=== PATIENT | male | born 1945 | race Caucasian/White ===

== ENCOUNTER 2017-08-17 16:59 | Emergency (ER) | payer MEDICARE, MEDICAID, SELFPAY ==
[2017-08-17 17:00] VITALS: BP 139/70; PULSE 82; RESP 16; TEMP 36.6; O2SAT 97; BMI 33.6
[2017-08-17] MEDS: 0.9% Normal Saline 1,000 ML 1000 ML IV (17:27)
[2017-08-17] MEDS: Ondansetron 4 MG/2 ML Vial IV (17:32)
[2017-08-17 18:16] LABS: Absolute Lymphocyte Count 0.75 X10^3/ul (0.83-4.51); Absolute Neutrophil Count 1.9 X10^3/uL (2.0-7.7); Basophil# 0.03 X10^3/uL; Basophil% 0.7 % (0-1); Eosinophil# 0.03 X10^3/uL; Eosinophils% 0.7 % (0-5); Hematocrit 44.2 % (40-54); Hemoglobin 15.7 g/dl (13.0-16.5); Lymphocyte # 0.75 X10^3/ul (4.0); Mean Corp Hgb Conc 35.5 g/gl (32-36); Mean Corpuscular Hgb 31.5 pg (27.0-32.0); Mean Corpuscular Volume 88.6 fL (80-94); Mean Platelet Vol. 9.2 fl (6.2-12.0); Monocyte# 1.66 X10^3/uL; Monocyte% 37.7 % (0-10); Neutrophil # 1.92 X10^3/uL (2.7-7.7); Neutrophil % 43.7 % (47-70); Platelet Count 317 K/mm3 (150-450); RBC Distribution Width CV 15.4 % (11.6-14.6); RBC Distribution Width SD 48.7 fl (35.1-43.9); Red Blood Count 4.99 M/mm3 (4.6-6.2); White Blood Count 4.4 K/mm3 (4.4-11.0)
[2017-08-17 18:20] LABS: Differential Indicated SCAN CRITERIA MET; POSITIVE COUNT NO; POSITIVE DIFFERENTIAL YES; POSITIVE MORPHOLOGY YES
[2017-08-17 18:23] LABS: AST(SGOT) 19 U/L (15-37); Alanine Aminotransfer ALT/SGPT 19 U/L (16-61); Albumin, Serum 3.1 g/dL (3.2-5.0); Alkaline Phosphatase 71 U/L (45-117); Anion Gap 10 (5-15); BUN 28 mg/dL (7-18); BUN/Creat Ratio 22.8 RATIO (10-20); Bilirubin, Direct 0.13 mg/dL (0.00-0.30); Chloride 92 mmol/L (98-107); Creatinine, Serum 1.23 mg/dL (0.70-1.30); EST Glomerular Filtration Rate 62 mL/min (>60); Est Glom Filt Rate - Afr Amer 75 mL/min (>60); Estimated Creatinine Clearance 54.07 ml/min; Globulin 4.1 g/dL (2.2-4.2); Glucose 120 mg/dL (70-110); Potassium 3.2 mmol/L (3.5-5.1); Protein, Total 7.2 g/dL (6.4-8.2); Sodium Level 131 mmol/L (136-145)
[2017-08-17] MEDS: 0.9% Normal Saline 1,000 ML 150 ML IV ×2 (18:32→19:07)
[2017-08-17 18:34] LABS: Differential Comment SCANNED
--- NOTE | 2017-08-17 18:57 | ED.VISSUMM ---
- ER Visit Summary Date of Service: 08/17/17 Chief Complaint: Nausea and vomiting History of Present Illness: The patient is a 72 M currently receiving chemotherapy for prostate and colon cancer. Patient states his last chemo treatment was 1 week ago today. 2 days later he developed nausea and vomiting. He has been trying to push fluids. States he has been urinating normally. He denies fever but has noted some chills. He denies abdominal pain. Physical Examination: Vital signs are unremarkable. Patient is lying in bed no acute distress. Head and neck examination was mildly dry mucous membranes. Heart is regular rate and rhythm. Lung sounds are clear. Abdomen is soft nontender. Hypoactive bowel sounds are noted throughout. Test Results: CBC is unremarkable. Chemistry studies reveal sodium of 131 and a chloride of 92. Potassium is 3.2. BUN is 28. On review of prior records his sodium was 141 on July 27. Liver function tests are normal. Emergency Department Course and Treatment: Patient is given Zofran along with IV fluids. On repeat evaluation patient reports feeling improved. He is able to tolerate p.o. Patient received a total of 2 L of IV fluid and a repeat BMP was performed. Repeat sodium is 133 and potassium is 2.9. Patient did receive 40 mEq of potassium chloride orally here. I will speak with the patient's oncologist. Plan will be to discharge home with potassium and Zofran. I am hoping that he can be seen in the next 2 days for repeat labs. Patient is comfortable with this plan. Treatment Plan: [] Disposition: Discharge Impression: 1. Nausea and vomiting, improved 2. Hyponatremia 3. Hypokalemia 4. Chemotherapy secondary to prostate colon cancer This note was generated with [employer] dictation software. It may contain incorrect words, spelling, and punctuation that were not noted in review of the chart prior to signing ED Disposition - Plan for ED Patient: Disposition: Home or Assisted Living Chief Complaint: Nausea/Vomiting Instructions: ED Hyponatremia, ED Potassium Deficiency, ED Nausea Vomiting Prescriptions: Ondansetron [Zofran Odt] 4 mg PO Q6H PRN PRN #20 tablet PRN Reason: Nausea Potassium Chloride [K-Dur] 40 meq PO DAILY #10 tablet Referrals: Meghan Sanchez DO [Primary Care Provider] - Margot Alonso MD [STAFF PHYSICIAN] - 1 Day
[2017-08-17 19:09] VITALS: BP 134/72; PULSE 72; RESP 20; O2SAT 97
[2017-08-17 19:55] LABS: Bacteria 0 SEEN /hpf (None Seen); Squamous Epithelial Cells - UA 0 SEEN /hpf (0-5)
[2017-08-17 20:03] LABS: Color, Urine Yellow (Yellow); Glucose, Dipstick 100 mg/dl (Normal); Ketone-Dipstick Negative (Negative); Leukocyte Esterase-Dipstick Negative /ul (Negative); Nitrite-Dipstick Negative (Negative); Occult Blood-Urine 150 /ul (Negative); Protein-Dipstick 30 mg/dl (Negative); Urine Bilirubin Dipstick Negative (Negative); Urine Clarity Clear (Clear); Urine Urobilinogen Normal (Normal)
[2017-08-17 20:20] LABS: Fine Granular Cast- Urine 0-5 SEEN /lpf (0-5)
[2017-08-17 20:21] LABS: Hyaline Cast 0-5 SEEN /lpf (0-5); Mucous, Urine 1+ /hpf (<or=2+)
[2017-08-17 20:27] LABS: Red Blood Cells-Urine 5-10 SEEN /hpf (0-5); White Blood Cells 0-5 SEEN /hpf (0-5)
[2017-08-17 20:52] LABS: Anion Gap 8 (5-15); BUN 24 mg/dL (7-18); Calcium,Total 7.9 mg/dL (8.5-10.1); Chloride 95 mmol/L (98-107); EST Glomerular Filtration Rate 79 mL/min (>60); Est Glom Filt Rate - Afr Amer 95 mL/min (>60); Glucose 106 mg/dL (70-110); Potassium 2.9 mmol/L (3.5-5.1); Sodium Level 133 mmol/L (136-145)
[2017-08-17 21:42] VITALS: BP 117/73; PULSE 85; RESP 18; O2SAT 97
--- NOTE | 2017-08-17 21:48 | ED.DEP ---
ED Disposition - Plan for ED Patient: Disposition: Home or Assisted Living Chief Complaint: Nausea/Vomiting Instructions: ED Nausea Vomiting, ED Hyponatremia, ED Potassium Deficiency Prescriptions: Ondansetron [Zofran Odt] 4 mg PO Q6H PRN PRN #20 tablet PRN Reason: Nausea Potassium Chloride [K-Dur] 40 meq PO DAILY #10 tablet Referrals: Meghan Sanchez DO [Primary Care Provider] - Margot Alonso MD [STAFF PHYSICIAN] - 1 Day
[2017-08-17] MEDS: Ondansetron ODT 4 MG Tablet PO (22:01)
== END 2017-08-17 22:13 | disposition home or self-care (01) ==
PROVIDERS: Emergency Provider Emergency Medicine; Family Provider Internal Medicine; PCP Internal Medicine
DX: R11.2 Nausea with vomiting, unspecified (principal); E87.1 Hypo-osmolality and hyponatremia; E87.6 Hypokalemia; C61 Malignant neoplasm of prostate; C18.9 Malignant neoplasm of colon, unspecified; I25.10 Atherosclerotic heart disease of native coronary artery without angina pectoris; I10 Essential (primary) hypertension; E78.00 Pure hypercholesterolemia, unspecified; K21.9 Gastro-esophageal reflux disease without esophagitis; Z79.51 Long term (current) use of inhaled steroids; Z79.82 Long term (current) use of aspirin; Z79.02 Long term (current) use of antithrombotics/antiplatelets; Z79.899 Other long term (current) drug therapy
CPT/HCPCS: 80048; 80076; 81001; 85025; 96361; 96374; 99284; J7030; J7040; A4216; J2405

== ENCOUNTER → 2018-01-26 10:53 | Outpatient (CLI) | payer MEDICARE, MEDICAID, SELFPAY ==
[2018-01-27 08:07] LABS: Carcinoembryonic Antigen 2.8 ng/mL (0.0-4.7)
== END ==
PROVIDERS: Family Provider Internal Medicine; PCP Internal Medicine; Visit Provider Internal Medicine Gastroenterology
DX: Z85.038 Personal history of other malignant neoplasm of large intestine (principal)
CPT/HCPCS: 36415; 82378

== ENCOUNTER → 2018-02-11 17:35 | Outpatient (CLI) | payer MEDICARE, MEDICAID, SELFPAY ==
--- NOTE | 2018-02-11 17:39 | CT_ITS ---
STUDY: CT ABDOMEN AND PELVIS WITH CONTRAST REASON FOR EXAM: Male, 72 years old. Colon cancer follow-up. History of partial colectomy and chemotherapy. RADIATION DOSAGE (If Supplied By Facility): CTDIvol = ( 18.35 ) mGy, DLP = ( 1266.54 ) mGycm TECHNIQUE: Transaxial images were obtained from the dome of the diaphragm to the symphysis pubis with oral contrast and post I.V. administration of 100 ml of Isovue 300 contrast. Sagittal and coronal images were reconstructed. Individualized dose optimization techniques were used for this CT. COMPARISON: CT abdomen and pelvis June 17, 2017. FINDINGS: 5 mm calcified granuloma seen in the posterolateral periphery of the left lung base. 1-2 mm nodules in the anterolateral periphery of the right middle lobe on series 2 image 5. Heart size is normal. There are atherosclerotic calcifications of the coronary arteries. Normal liver. The patent portal vein diameter is 1.2 cm. Normal gallbladder and extrahepatic biliary system. The diameter of the common bile duct is 6.5 mm. There are multiple benign calcified granulomata of the spleen. Normal pancreas. Normal bilateral adrenal glands. Normal right kidney. Normal left kidney. No hydronephrosis. There is a stable small hiatal hernia. Normal small intestine. There are multiple colonic diverticula consistent with diverticulosis. The appendix is visualized and appears normal. There is stable atherosclerotic calcification of the abdominal aorta and proximal iliac arteries, without a demonstrated aneurysm. Normal inferior vena cava. Normal retroperitoneum. Normal urinary bladder. The prostate gland is 4.85 x 4.7 x 4.45 cm (R 64 cc). There are prostatic calcifications. There is a stable small umbilical hernia containing fat. There is a stable right-sided inguinal hernia containing adipose tissue. There is a stable left-sided inguinal hernia containing adipose tissue. There are stable multilevel degenerative changes of the visualized spine, as well as stable osteoarthritic degenerative changes of the sacroiliac joints and hips. CT/Abdomen/Pelvis WITH Contrast IMPRESSION: 1. Colonic diverticulosis without acute diverticulitis. No sign of bowel mass or adenopathy. No sign of bowel obstruction. The appendix is normal. 2. Stable atherosclerotic vascular calcifications. 3. Stable fat-containing umbilical and bilateral inguinal hernias. 4. The prostate gland is enlarged with coarse central calcifications. 5. No hydronephrosis. 6. Stable findings of old calcified granulomatous disease. 7. Stable degenerative changes of the spine and pelvis. Electronically Signed: Donald Oliveros MD at 18:33 EDT , Service support ,
== END ==
PROVIDERS: Family Provider Internal Medicine; PCP Internal Medicine; Visit Provider Internal Medicine Gastroenterology
DX: Z85.038 Personal history of other malignant neoplasm of large intestine (principal)
CPT/HCPCS: 74177

== ENCOUNTER → 2018-03-17 15:25 | Outpatient (CLI) | payer MEDICARE, MEDICAID, SELFPAY ==
[2018-03-17 15:34] LABS: Absolute Lymphocyte Count 1.44 X10^3/ul (0.83-4.51); Absolute Neutrophil Count 4.2 X10^3/uL (2.0-7.7); Basophil# 0.04 X10^3/uL; Basophil% 0.6 % (0-1); Eosinophil# 0.18 X10^3/uL; Eosinophils% 2.8 % (0-5); Hematocrit 45.8 % (40-54); Hemoglobin 15.6 g/dl (13.0-16.5); Lymphocyte # 1.44 X10^3/ul (4.0); Lymphocyte % 22.1 % (19-41); Mean Corp Hgb Conc 34.1 g/gl (32-36); Mean Corpuscular Hgb 31.1 pg (27.0-32.0); Mean Corpuscular Volume 91.2 fL (80-94); Mean Platelet Vol. 9.4 fl (6.2-12.0); Monocyte# 0.63 X10^3/uL; Monocyte% 9.7 % (0-10); Neutrophil # 4.21 X10^3/uL (2.7-7.7); Neutrophil % 64.5 % (47-70); Platelet Count 277 K/mm3 (150-450); RBC Distribution Width CV 12.9 % (11.6-14.6); RBC Distribution Width SD 42.5 fl (35.1-43.9); Red Blood Count 5.02 M/mm3 (4.6-6.2); White Blood Count 6.5 K/mm3 (4.4-11.0)
[2018-03-17 15:40] LABS: Erythrocyte Sedimentation Rate 3 mm/hr (0-20)
[2018-03-17 15:43] LABS: POSITIVE COUNT NO; POSITIVE DIFFERENTIAL NO; POSITIVE MORPHOLOGY NO
[2018-03-17 16:02] LABS: ALB/GLOB Ratio 1.3 RATIO (0.9-2.4); AST(SGOT) 31 U/L (15-37); Alanine Aminotransfer ALT/SGPT 29 U/L (16-61); Albumin, Serum 4.1 g/dL (3.2-5.0); Alkaline Phosphatase 74 U/L (45-117); Anion Gap 8 (5-15); BUN 9 mg/dL (7-18); BUN/Creat Ratio 8.7 RATIO (10-20); CRP, High Sensitivity Cardiac 1.27 mg/L; Calcium,Total 9.3 mg/dL (8.5-10.1); Chloride 101 mmol/L (98-107); Creatinine, Serum 1.03 mg/dL (0.70-1.30); EST Glomerular Filtration Rate 76 mL/min (>60); Est Glom Filt Rate - Afr Amer 92 mL/min (>60); Globulin 3.2 g/dL (2.2-4.2); Glucose 85 mg/dL (74-106); Protein, Total 7.3 g/dL (6.4-8.2); Sodium Level 139 mmol/L (136-145)
== END ==
PROVIDERS: Family Provider Internal Medicine; PCP Internal Medicine; Visit Provider Nurse Practitioner Gerontology
DX: R50.9 Fever, unspecified (principal); I25.10 Atherosclerotic heart disease of native coronary artery without angina pectoris
CPT/HCPCS: 80053; 85025; 85652; 86141

== ENCOUNTER → 2018-09-21 15:35 | Outpatient (CLI) | payer MEDICARE, MEDICAID, SELFPAY ==
[2018-06-28 10:54] VITALS: BMI 34.5
--- NOTE | 2018-09-21 15:41 | VDUE_ITS ---
Reason For Study: PAIN Right Proximal Right jugular vein is spontaneous, widely patent, phasic, with no intraluminal echogenicity noted. Right subclavian vein is spontaneous, widely patent, phasic, with no intraluminal echogenicity noted. Right Lower Arm Right radial vein is compressible. Right ulnar vein is compressible. Right Arm Right axillary vein is spontaneous, patent, phasic, competent, compressible and demonstrates augmentation. Right brachial vein is compressible. Right cephalic vein is compressible. Right basilic vein is compressible. Interpretation Summary Deep veins of the right upper extremity are patent and compressible segmentally. There is no evidence of deep vein thrombosis. The superficial veins of the right upper extremity, the basilic and cephalic veins, are patent and compressible. There is no evidence of right upper extremity superficial thrombophlebitis involving the veins imaged. Ordering Physician: Meghan Sanchez Referring Physician: Meghan Sanchez Performed By: Gabriela Mcfadden, THADDEUS, RVT ?
== END ==
PROVIDERS: Family Provider Internal Medicine; PCP Internal Medicine; Referring Provider Internal Medicine; Visit Provider Internal Medicine
DX: M79.601 Pain in right arm (principal)
CPT/HCPCS: 93971

== ENCOUNTER → 2018-12-27 | Outpatient (CLI) | payer MEDICARE, MEDICAID, SELFPAY ==
[2018-09-28 13:41] VITALS: BMI 34.9
[2018-12-27 16:14] LABS: PSA,Total- Diagnostic 7.07 ng/mL (0.0-4.0)
== END | disposition home or self-care (01) ==
LOC: LAB 14:26
PROVIDERS: Family Provider Internal Medicine; PCP Internal Medicine; Referring Provider Radiology Radiation Oncology; Visit Provider Radiology Radiation Oncology
DX: C61 Malignant neoplasm of prostate (principal)
CPT/HCPCS: 36415; 84153

== ENCOUNTER → 2019-07-13 13:10 | Outpatient (CLI) | payer MEDICARE, MEDICAID, SELFPAY ==
[2019-06-29 13:28] VITALS: BMI 34.7
[2019-07-13 14:18] LABS: PSA,Total- Diagnostic 7.94 ng/mL (0.0-4.0)
== END ==
PROVIDERS: Family Provider Internal Medicine; PCP Internal Medicine; Referring Provider Radiology Radiation Oncology; Visit Provider Radiology Radiation Oncology
DX: Z85.46 Personal history of malignant neoplasm of prostate (principal)
CPT/HCPCS: 36415; 84153

== ENCOUNTER 2019-08-11 09:02 | Day surgery (SDC) | payer MEDICARE, MEDICAID, SELFPAY ==
[2019-07-28 12:28] VITALS: BMI 34.7
--- NOTE | 2019-07-28 12:45 | HP_ITS ---
Intake Vital Signs 07/28/19 BMI 34.7 07/28/19 Height 5 ft 9.5 in 07/28/19 Weight: 238 lb 07/28/19 BMI 34.6 07/28/19 BP 115/67 07/28/19 Blood Pressure Location Lt brachial 07/28/19 Position Sitting 07/28/19 Respiration 16 07/28/19 Pulse 52 L 07/28/19 Pulse Source Monitor 07/28/19 Temp 98.2 F 07/28/19 Temp Source Oral 07/28/19 Pulse Oximetry (%) 96 07/28/19 Oxygen Delivery Method room air Intake Visit Reasons: Colonoscopy CONSULT Chief Complaint: Colon cancer follow-up Allergies DUST Adverse Reaction (Mild, Uncoded 06/29/19 13:25) Other Medications Albuterol Sulfate [Proventil Hfa] 6.7 gm IH PRN PRN 10/21/15 [History Confirmed 07/28/19] Aspirin 325 mg PO DAILY@0800 10/21/15 [History Confirmed 07/28/19] Ezetimibe [Zetia] 10 mg PO DAILY 10/21/15 [History Confirmed 07/28/19] Fluticasone 0.05% [Flonase Nasal [place]] 2 spray NASAL DAILY 10/21/15 [History Confirmed 07/28/19] Lansoprazole [Prevacid] 30 mg PO DAILY 10/21/15 [History Confirmed 07/28/19] Montelukast [Singulair] 10 mg PO DAILY 10/21/15 [History Confirmed 07/28/19] Tiotropium [place] [Spiriva Respimat] 2.5 mg IH DAILY 07/12/16 [History Confirmed 07/28/19] Ondansetron [Zofran Odt] 4 mg PO Q6H PRN PRN #20 tab 08/17/17 [Rx Confirmed 07/28/19] carvedilol 3.125 mg tablet 3.125 mg PO BID #180 tab 04/14/18 [Rx Confirmed 07/28/19] clopidogrel 75 mg tablet 75 mg PO DAILY #90 tab 04/14/18 [Rx Confirmed 07/28/19] hydrochlorothiazide 25 mg tablet 25 mg PO DAILY #90 tab 04/14/18 [Rx Confirmed 07/28/19] lisinopril 20 mg tablet 20 mg PO DAILY #90 tab 09/27/18 [Rx Confirmed 07/28/19] simvastatin 20 mg tablet 20 mg PO QHS #90 tab 10/17/18 [Rx Confirmed 07/28/19] nitroglycerin 0.4 mg sublingual tablet 0.4 mg SUBLINGUAL Q5M PRN #25 tab 05/29/19 [Rx Confirmed 07/28/19] Acetaminophen [Tylenol] 650 mg PO TID 06/29/19 [History Confirmed 07/28/19] [facility] Medical History Presence of stent in coronary artery (Chronic ~09/23/09) Atherosclerotic heart disease of [place] coronary artery without angina pectoris (Chronic) 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 (Acute) Sinus bradycardia (Chronic) COPD (chronic obstructive pulmonary disease) (Chronic) Palpitations (Chronic) Atherosclerosis of renal artery (Chronic) PAC (premature atrial contraction) (Chronic) Essential hypertension (Chronic) Colon cancer (Chronic) Regional lymph node metastasis present (Chronic) Prostate cancer (Chronic) GERD (gastroesophageal reflux disease) (Chronic) Chest pain (Acute) CVD (cerebrovascular disease) (Chronic) Cataract (Chronic) Osteoarthritis (Chronic) Pure hypercholesterolemia (Chronic) Conjunctivitis (Resolved) Dehydration (Resolved) Educational circumstance (Resolved) Hypokalemia (Resolved) Surgical History History of squamous cell carcinoma excision (Acute) Presence of coronary angioplasty implant and graft (Chronic ~09/23/09) H/O colectomy (Resolved) Family History Father Heart murmur Mother Heart disease Hypertension Brother Colon cancer Brother Colon cancer Social History (Updated 07/28/19 @ 12:45 by Xander Woo MD) Smoking Status: Never smoker alcohol intake: never substance use type: does not use caffeine: Yes Type: coffee Number of servings: 5 what type of physical activity do you participate in: aerobics, other frequency: daily duration: 15-30 minutes/day seatbelt use: always do you feel safe at home: Yes HPI HPI HPI: WERNER STEIN, is a 74 M who presents to the office today for HPI HPI Surgical H&P: Yes HPI: WERNER STEIN, is a 74 M who presents to the office today for colonoscopy. Patient had a history of colectomy In July 2016. He has not underwent any colonoscopy since the procedure. Patient has CT which showed no signs of metastatic disease. The patient reports no blood in his stool or abdominal pain. ROS General General: Yes colon cancer; no weight change or fatigue Musc Musculoskeletal: Yes arthritis, rheumatoid arthritis and gout Cardio Cardiovascular: Yes heart attack and heart stent; no murmur, pacemaker, heart disease, atrial fibrillation, high blood pressure, palpitations, shortness of breat with exertion or chest pain Psych Psychiatric: No depression or anxiety Resp Respiratory: No shortness of breath, No sleep apnea, No cough, Yes COPD, No asthma, No emphysema, No wheezing Gastro Gastrointestinal: No abdominal pain, No nausea or vomiting, No diarrhea, No constipation, No blood in stool, Yes acid reflux, No hemorrhoids, Yes ulcers, No gallbladder problem, No black,tarry stools Sean Hematologic: Yes blood thinners Exam Const General: cooperative Orientation: alert, oriented x3 Resp Effort & Inspection: normal respiratory effort Auscultation: clear to auscultation bilaterally Cardio Rate: regular rate Rhythm: regular rhythm Heart Sounds: no murmurs GI Inspection: non-distended Palpation: soft, nontender Assessment & Plan Problems 1. 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 It was T3N1. He has had CT scans but no colonoscopy since the surgery. CEA is normal. He is not having any blood in his stool or abdominal pain. Plan for surveillance colonoscopy. I explained endoscopy in detail to the patient. I explained the risks including but not limited to stroke or heart attack with anesthesia, perforation of the GI tract, bleeding, infection. I explained that any of these could necessitate further emergency surgery. The patient understands and all questions were answered sufficiently. The patient wishes to proceed with procedure. I have asked him to stop his Plavix for 5 days prior to the procedure. I have also asked him to convert his 325 mg aspirin to 81 mg but continue the aspirin. He says he has stopped his aspirin in the past for procedures and there were no issues. 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 There are no clinical changes since date of exam.
[2019-08-11 09:34] VITALS: BP 123/70; PULSE 61; RESP 18; TEMP 36.6; O2SAT 99; BMI 35.2
[2019-08-11] MEDS: Lactated Ringers 1,000 ML 100 ML IV (09:41)
[2019-08-11 10:20] VITALS: BP 123/70; BP 87/62; PULSE 64; RESP 14; TEMP 36.7; O2SAT 95
[2019-08-11 10:25] VITALS: BP 123/70; BP 94/72; PULSE 63; RESP 16; O2SAT 93
--- NOTE | 2019-08-11 10:26 | OP.CCLET_ITS ---
08/11/2019 Meghan Sanchez [address] [place] [address] [place] [address] Re : Colonoscopy procedure for [place] Colonbabita Dear Dr. Sanchez This procedure was performed on Sunday, August 11, 2019. My impressions and recommendations are as follows: Impressions : - The entire examined colon is normal. - No specimens collected. Recommendations : - Discharge patient to home. - Resume previous diet. - Continue present medications. - Repeat colonoscopy in 3 years for surveillance. My findings are described in the full procedure note, which is enclosed. If I can be of further assistance, please feel free to contact me at Doctor phone number(s): , Work: . Sincerely, Xander Woo MD 08/11/2019 10:26:28 AM This report has been signed electronically.
--- NOTE | 2019-08-11 10:26 | OP.COLON_ITS ---
Patient Name: Renny Vaca Procedure Date: 08/11/2019 9:58 AM Date of : 1945 Age: 74 Procedure: Colonoscopy Indications: High risk colon cancer surveillance: Personal history of colon cancer Providers: Xander Woo MD Referring MD: Meghan Sanchez Medicines: Monitored Anesthesia Care Patient Profile: This is a 74 year old male. Refer to note in patient chart for documentation of history and physical. Last Colonoscopy: 3 years ago. Complications: No immediate complications. Procedure: Pre-Anesthesia Assessment: - Prior to the procedure, a History and Physical was performed, and patient medications and allergies were reviewed. The patient's tolerance of previous anesthesia was also reviewed. The risks and benefits of the procedure and the sedation options and risks were discussed with the patient. All questions were answered, and informed consent was obtained. Prior Anticoagulants: The patient has taken no previous anticoagulant or antiplatelet agents. After reviewing the risks and benefits, the patient was deemed in satisfactory condition to undergo the procedure. After I obtained informed consent, the scope was passed under direct vision. Throughout the procedure, the patient's blood pressure, pulse, and oxygen saturations were monitored continuously. The pediatric colonoscope was introduced through the anus and advanced to the cecum, identified by appendiceal orifice and ileocecal valve. The colonoscopy was performed without difficulty. The patient tolerated the procedure well. The quality of the bowel preparation was good. Scope In: 10:02:57 AM Scope Withdrawal Time 0 hours 6 minutes 53 seconds Scope Out: 10:15:36 AM Total Procedure Duration Time 0 hours 12 minutes 39 seconds Findings: The entire examined colon appeared normal. Impression: - The entire examined colon is normal. - No specimens collected. Recommendation: - Discharge patient to home. - Resume previous diet. - Continue present medications. - Repeat colonoscopy in 3 years for surveillance. Procedure Code(s): --- Professional --- 38936, Colonoscopy, flexible; diagnostic, including collection of specimen(s) by brushing or washing, when performed (separate procedure) Diagnosis Code(s): --- Professional --- Z85.038, Personal history of other malignant neoplasm of large intestine CPT copyright 2017 [employer]. All rights reserved. The codes documented in this report are preliminary and upon smoke jumper supervisor review may be revised to meet current compliance requirements. Xander Woo MD 08/11/2019 10:26:28 AM This report has been signed electronically. Number of Addenda: 0 Note Initiated On: 08/11/2019 9:58 AM
[2019-08-11 10:30] VITALS: BP 102/64; BP 123/70; PULSE 61; RESP 16; O2SAT 95
[2019-08-11 10:36] VITALS: BP 102/68; BP 123/70; PULSE 57; RESP 16; TEMP 36.6; O2SAT 94
[2019-08-11 11:20] VITALS: BP 123/70
== END 2019-08-11 11:20 | disposition home or self-care (01) ==
LOC: EN 09:03 → AC 09:07
PROVIDERS: Family Provider Internal Medicine; PCP Internal Medicine; Referring Provider Internal Medicine; Visit Provider Surgery
PROC: 0DJD8ZZ Inspection of Lower Intestinal Tract, Via Natural or Artificial Opening Endoscopic (ICD-10-PCS; CPT 45378; principal; 2019-08-11 10:15)
DX: Z85.038 Personal history of other malignant neoplasm of large intestine (principal); I25.10 Atherosclerotic heart disease of native coronary artery without angina pectoris; J44.9 Chronic obstructive pulmonary disease, unspecified; I10 Essential (primary) hypertension; K21.9 Gastro-esophageal reflux disease without esophagitis; M19.90 Unspecified osteoarthritis, unspecified site; E78.00 Pure hypercholesterolemia, unspecified; Z86.73 Personal history of transient ischemic attack (TIA), and cerebral infarction without residual deficits; Z85.828 Personal history of other malignant neoplasm of skin; Z95.5 Presence of coronary angioplasty implant and graft; Z85.46 Personal history of malignant neoplasm of prostate; Z90.49 Acquired absence of other specified parts of digestive tract; Z79.51 Long term (current) use of inhaled steroids; Z79.82 Long term (current) use of aspirin; Z79.899 Other long term (current) drug therapy; Z79.02 Long term (current) use of antithrombotics/antiplatelets
CPT/HCPCS: G0105; J7120; J2405

== ENCOUNTER → 2019-09-06 14:36 | Outpatient (CLI) | payer MEDICARE, MEDICAID, SELFPAY ==
[2019-08-11 09:34] VITALS: BMI 35.2
--- NOTE | 2019-09-06 14:43 | RAD_ITS ---
HISTORY: NECK PAIN EXAMINATION/TECHNIQUE: XR Spine Cervical 5 Views: COMPARISON: 09/20/2015 FINDINGS: No significant change. The cervical vertebra show normal height and alignment. No fracture or acute osseous abnormality. Mild narrowing of the C3-4 through C6-7 disc levels. Multilevel anterolateral endplate spurring. Uncovertebral spurring with foraminal narrowing of the C3-4 and C5-6 levels on the right. C5-6 mild uncovertebral spurring on the left. The C1-C2 relationship appears normal. Bilateral carotid calcifications. RAD/Cerv Spine 4 or 5 Views IMPRESSION: 1. No acute disease or significant change. 2. Multilevel degenerative disc disease and spondylosis. 3. Foraminal narrowing of the C3-4 and C5-6 levels on the right secondary to uncovertebral spurring. 4. Bilateral carotid calcifications. at 0816 Reported and signed by: Cory Guo MD Electronically Signed: Cory Guo, at 8:15 EST Tel , Service support ,
== END ==
PROVIDERS: PCP Internal Medicine; Referring Provider Nurse Practitioner; Visit Provider Nurse Practitioner
DX: M54.2 Cervicalgia (principal)
CPT/HCPCS: 72050

== ENCOUNTER → 2019-09-08 13:45 | Outpatient (CLI) | payer MEDICARE, MEDICAID, SELFPAY ==
[2019-08-11 09:34] VITALS: BMI 35.2
--- NOTE | 2019-09-08 13:49 | VDLE_ITS ---
Reason For Study: Pain RIGHT LEFT GSV is normal. GSV is normal. CFV is compressible, spontaneous, phasic, CFV is compressible, spontaneous, phasic, competent and demonstrates normal competent, and demonstrates normal augmentation. augmentation. FV is compressible, spontaneous, phasic, FV is compressible, spontaneous, phasic, competent and demonstrates normal competent and demonstrates normal augmentation. augmentation. POP V is compressible, spontaneous, phasic, POP V is compressible, spontaneous, phasic, competent and demonstrates normal competent and demonstrates normal augmentation. augmentation. T/P Trunk is compressible. T/P Trunk is compressible. PTV is compressible. PTV is compressible. RT PerV is compressible. Lt PeroV is partially compressible with Procedure bright intraluminal echoes consistent with Exam performed in department. chronic DVT. A preliminary report was called and/or faxed to Petra Niño. Interpretation Summary Chronic venous changes are noted in the left peroneal vein, which is partially compressible and demonstrates bright intraluminal echogenicity. The remainder of the left lower extremity deep venous system is patent and compressible. Deep veins of the right lower extremity are patent and compressible segmentally. There is no evidence of right lower extremity deep vein thrombosis. Valvular competence appears intact within the proximal deep venous systems bilaterally. The great saphenous veins appear bilaterally patent and compressible segmentally. Ordering Physician: Petra Niño Referring Physician: Petra Niño Performed By: Dai Soto, THADDEUS, RVT
== END ==
PROVIDERS: PCP Internal Medicine; Referring Provider Nurse Practitioner; Visit Provider Nurse Practitioner
DX: M79.604 Pain in right leg (principal)
CPT/HCPCS: 93970

== ENCOUNTER → 2019-09-29 13:22 | Outpatient (CLI) | payer MEDICARE, MEDICAID, SELFPAY ==
--- NOTE | 2019-09-29 13:32 | CDU_ITS ---
Reason For Study: Carotid Stenosis Rt. Velocities/BP Lt. Velocities/BP Prox CCA 87/22 cm/sec. Prox CCA 100/33 cm/sec. Mid CCA 103/23 cm/sec. Mid CCA 94/29 cm/sec. Dist CCA 100/19 cm/sec. Dist CCA 79/25 cm/sec. Prox ICA 144/27 cm/sec. Prox ICA 125/36 cm/sec. Mid ICA 81/22 cm/sec. Mid ICA 114/36 cm/sec. Dist ICA 67/31 cm/sec. Dist ICA 87/27 cm/sec. Rt. ICA/CCA = 1.4. Lt. ICA/CCA = 1.33. Prox ECA 148/30 cm/sec. Prox ECA 79/16 cm/sec. Rt. Vert. 31/11 cm/sec. Lt. Vert. 30/10 cm/sec. Right Extracranial There is homogeneous, smooth atherosclerotic plaque noted in the right common carotid artery. There is heterogeneous, irregular atherosclerotic plaque noted in the right internal carotid artery. There is no significant atherosclerotic plaque noted in the right external carotid artery. Antegrade flow is noted in the right vertebral artery. Left Extracranial There is homogeneous, smooth atherosclerotic plaque noted in the left common carotid artery. There is homogeneous, irregular atherosclerotic plaque noted in the left internal carotid artery. There is intimal thickening but no significant atherosclerotic plaque noted in the left external carotid artery. Antegrade flow is noted in the left vertebral artery. Procedure Carotid Duplex 42089. Exam performed in department. Interpretation Summary Moderate (50-69%) stenosis right extracranial internal carotid. Mild (<50%) stenosis left extracranial internal carotid. Flow within the vertebral arteries is antegrade bilaterally. Ordering Physician: Meghan Sanchez Referring Physician: Meghan Sanchez Performed By: Dai Soto, THADDEUS, RVT
[2019-10-13 14:06] LABS: CREATININE FINGERSTICK 1.2 mg/dL (0.70-1.30)
== END ==
PROVIDERS: PCP Internal Medicine; Referring Provider Internal Medicine; Visit Provider Internal Medicine
DX: I65.23 Occlusion and stenosis of bilateral carotid arteries (principal)
CPT/HCPCS: 93880

== ENCOUNTER → 2019-10-13 13:46 | Outpatient (CLI) | payer MEDICARE, MEDICAID, SELFPAY ==
--- NOTE | 2019-10-13 13:51 | CT_ITS ---
STUDY: CTA NECK WITH CONTRAST REASON FOR EXAM: Male, 74 years old. Bilateral carotid stenosis, right sided neck pain RADIATION DOSAGE (If Supplied By Facility): CTDIvol = ( 22.99 ) mGy, DLP = ( 700.35 ) mGycm TECHNIQUE: CT angiography with multi-detector data acquisition was performed from the aortic arch to the skull base following intravenous administration of IV 100mL Isovue-300. MIP images were reconstructed from the axial data set. Post-processing of the angiographic images was performed, with multiplanar reformation and 3D reconstruction. Individualized dose optimization techniques were used for this CT. COMPARISON: None. FINDINGS: Calcified left hilar lymph nodes. AORTIC ARCH: There is atherosclerotic calcific plaque formation of the aortic arch and great vessels arising from the aortic arch, without a hemodynamically significant stenosis. There is a normal origin of the brachiocephalic, left common carotid, and left subclavian arteries. RIGHT CAROTID ARTERIES: Normal right common carotid artery (CCA). Normal right common carotid bulb. There is mild atherosclerotic plaque formation of the origin of the right internal carotid artery with less than 50% cross sectional diameter stenosis. Normal visualized cervical portion of the right internal carotid artery. Normal origin of the right external carotid artery (ECA). LEFT CAROTID ARTERIES: Normal left common carotid artery (CCA). Normal left common carotid bulb. There is extensive complex atherosclerotic plaque formation of the origin of the left internal carotid artery with an estimated stenosis of greater than 70%. Normal visualized cervical portion of the left internal carotid artery. Normal origin of the left external carotid artery (ECA). VERTEBRAL ARTERIES: There is enhancement within the bilateral vertebral arteries with a small right vertebral artery, and a dominant left vertebral artery. CT/CTA Neck W/WO Contrast IMPRESSION: Greater than 70% stenosis at the origin of the left internal carotid artery due to a complex plaque. Mild stenosis at the origin of the right internal carotid artery due to calcific plaques. Electronically Signed: Tod Vasquez, at 14:32 EDT , Service support ,
== END ==
PROVIDERS: PCP Internal Medicine; Referring Provider Internal Medicine; Visit Provider Internal Medicine
DX: I65.23 Occlusion and stenosis of bilateral carotid arteries (principal)
CPT/HCPCS: 70498; Q9967

== ENCOUNTER → 2019-12-26 13:43 | Outpatient (CLI) | payer MEDICARE, MEDICAID, SELFPAY ==
[2019-12-20 09:05] VITALS: BMI 34.7
--- NOTE | 2019-12-26 13:46 | ART_ITS ---
Reason For Study: Claudication Procedure A bilateral lower extremity continuous wave Doppler with analog waveform analysis,segmental pressures,and ankle brachial indexes without exercise. Left Segmental Pressures Left brachial= 109mmHg. Left posterior tibial artery = 127mmHg. Left dorsalis pedis artery = 130mmHg. Left digit = 110 mmHg. The left dorsalis pedis waveforms are triphasic. The left posterior tibial artery waveforms are triphasic. Right Segmental Pressures Right brachial= 107mmHg. Right posterior tibial artery = 131mmHg. Right dorsalis pedis artery = 125mmHg. Right digit = 122 mmHg. The right dorsalis pedis waveforms are triphasic. The right posterior tibial artery waveforms are triphasic. Indices The right ankle brachial index by the dorsalis pedis is 1.15. The right ankle brachial index by the posterior tibial artery is 1.20. The right digital-brachial index is 1.12. The left ankle brachial index by the dorsalis pedis is 1.19. The left ankle brachial index by the posterior tibial artery is 1.17. The left digital-brachial index is 1.01. Interpretation Summary Bilateral no significant occlussive disease with triphasic flow and RACHAEL 1.2 and 1.19. Ordering Physician: Susie Luque Referring Physician: Meghan Sanchez M.D. Performed By: Jazz Doll RVT
== END ==
PROVIDERS: PCP Internal Medicine; Referring Provider Physician Assistant Medical; Visit Provider Physician Assistant Medical
DX: I73.9 Peripheral vascular disease, unspecified (principal); I77.9 Disorder of arteries and arterioles, unspecified; I25.10 Atherosclerotic heart disease of native coronary artery without angina pectoris
CPT/HCPCS: 93923

== ENCOUNTER → 2020-07-01 11:41 | Outpatient (CLI) | payer MEDICARE, MEDICAID, SELFPAY ==
[2020-06-26 13:35] VITALS: BMI 35.2
--- NOTE | 2020-07-01 11:43 | US_ITS ---
STUDY: NECK ULTRASOUND REASON FOR EXAM: Male, 75 years old patient with palpable lump in the left neck TECHNIQUE: Ultrasound evaluation of the palpable abnormality in the left anterior neck was performed with real-time and static haji-scale imaging. COMPARISON: None. FINDINGS: The regional lymph nodes are normal. No nodules are identified in the area of palpable abnormality. US/Head/Neck Soft Tissue IMPRESSION: No nodules are visible to explain the palpable abnormality. Electronically Signed: Rhianna Jennings MD at 9:54 EST , Service support ,
== END ==
PROVIDERS: PCP Internal Medicine; Referring Provider Internal Medicine Hematology & Oncology; Visit Provider Internal Medicine Hematology & Oncology
DX: R22.1 Localized swelling, mass and lump, neck (principal)
CPT/HCPCS: 76536

== ENCOUNTER → 2020-07-25 13:51 | Outpatient (CLI) | payer MEDICARE, MEDICAID, SELFPAY ==
[2020-06-26 13:35] VITALS: BMI 35.2
== END ==
PROVIDERS: PCP Internal Medicine; Visit Provider Radiology Radiation Oncology
DX: Z85.46 Personal history of malignant neoplasm of prostate (principal)
CPT/HCPCS: 36415; 84153

== ENCOUNTER → 2020-08-21 14:46 | Outpatient (CLI) | payer MEDICARE, MEDICAID, SELFPAY ==
[2020-08-21 13:54] VITALS: BMI 36.0
--- NOTE | 2020-08-21 14:50 | VDLE_ITS ---
Reason For Study: Swelling RIGHT LEFT GSV is normal. GSV is normal. CFV is compressible, spontaneous, phasic, CFV is compressible, spontaneous, phasic, competent and demonstrates normal competent, and demonstrates normal augmentation. augmentation. FV is compressible, spontaneous, phasic, FV is compressible, spontaneous, phasic, competent and demonstrates normal competent and demonstrates normal augmentation. augmentation. POP V is compressible, spontaneous, phasic, POP V is compressible, spontaneous, phasic, competent and demonstrates normal competent and demonstrates normal augmentation. augmentation. T/P Trunk is compressible. T/P Trunk is compressible. PTV is compressible. PTV is compressible. RT PerV is compressible. LT PerV is compressible. Nonvascularized structure noted in the proximal medial calf measuring approximently 0.65 x 1.61 x 2.11 cm. Procedure This is a venous duplex using B-mode, color flow and spectral Doppler. Exam performed in department. A preliminary report was called and/or faxed to [facility]. Interpretation Summary No evidence for acute deep venous thrombosis bilateral lower extremities with patent and compressible bilateral great saphenous veins. Proximal right medial calf 0.65 x 1.61 x 2.11 cm. Seemingly located in the subcutaneous tissue. Vascular flow was not identified. Etiology not clear clinical, correlation would be appropriate Ordering Physician: Nadir Silva Referring Physician: Meghan Sanchez M.D. Performed By: Jazz Doll RVT
== END ==
PROVIDERS: PCP Internal Medicine; Referring Provider Internal Medicine Cardiovascular Disease; Visit Provider Internal Medicine Cardiovascular Disease
DX: R22.1 Localized swelling, mass and lump, neck (principal); I25.10 Atherosclerotic heart disease of native coronary artery without angina pectoris; I49.1 Atrial premature depolarization; E78.2 Mixed hyperlipidemia; I65.21 Occlusion and stenosis of right carotid artery; I10 Essential (primary) hypertension; Z95.5 Presence of coronary angioplasty implant and graft
CPT/HCPCS: 93970

== ENCOUNTER → 2020-08-27 11:06 | Outpatient (CLI) | payer MEDICARE, MEDICAID, SELFPAY ==
[2020-08-21 13:54] VITALS: BMI 36.0
--- NOTE | 2020-08-27 | IMM_PTH ---
PATIENT: WERNER STEIN LOC: [facility] U#:[id number] AGE/SX: 80/M ROOM: RE08/27/[address]: Dr. Jung Pinon MD : 1945 BED: DIS: SPEC #: [id number] RECD: 08/28/20 13:04 STATUS: MARLEY REConnor #: [id number] CIARAN: 08/27/20 00:[address]: Jung Pinon DEPT: IMMUNOHISTOCHEMISTRY RECD BY: Negar Gonazles ENTERED: 08/28/20 13:05 SP TYPE: IMMUNO OTHR DR: Dr. Meghan Sanchez DO Tissues: A - PROSTATE RIGHT D - PROSTATE LEFT E - PROSTATE LEFT F - PROSTATE LEFT Procedures: 34BE12 (add) P40 (add) 34BE12 (initial) PHYSICIAN & INSTITUTION [place] [id number] SPECIMEN INFORMATION: Tissue Source: A - Right apex, D - Left apex, E - Left mid, F - Left base Clinical Info: Elevated PSA Specimen Number: [id number] A, D-F CPT code: 88178, 98585 x7 METHODOLOGY: Deparaffinized sections of prefer/formalin-fixed tissue or PAP/DQ stained slides are incubated with monoclonal/polyclonal antibodies/oligonucleotide probes. Localization is made via biotin free immunoperoxidase method. Appropriate controls are performed and reacted as expected. Results on target cell population are indicated in the following table: RESULTS: ANTIBODY / CLONE RESULT Block A P40 (BC28) positive 34BE12 (34BE12) positive Block D P40 (BC28) negative 34BE12 (34BE12) negative Block E P40 (BC28) negative 34BE12 (34BE12) negative Block F P40 (BC28) negative 34BE12 (34BE12) negative These tests were developed and their performance characteristics determined by [facility]. They may not have been cleared or approved by the U.S. Food and Drug Administration. The FDA has determined that such clearance or approval is not necessary. The above immunohistochemical/dualISH markers are ordered and reviewed by the Pathologist. INTERPRETATION: A. Right prostate, apex, core biopsy: Negative for adenocarcinoma. D. Left prostate, apex, core biopsy: Adenocarcinoma. E. Left prostate, mid, core biopsy: Adenocarcinoma. F. Left prostate, base, core biopsy: Adenocarcinoma. SJ:aparna 08/29/2020
--- NOTE | 2020-08-27 08:00 | PROSBIL_PTH ---
PATIENT: WERNER STEIN LOC: [facility] U#:[id number] AGE/SX: 80/M ROOM: RE08/27/[address]: Dr. Jung Pinon MD : 1945 BED: DIS: SPEC #: [id number] RECD: 08/27/20 11:00 STATUS: MARLEY TRAM #: [id number] CIARAN: 08/27/20 08:[address]: Jung Pinon DEPT: SURGICAL PATHOLOGY RECD BY: Angie Franco ENTERED: 08/27/20 13:29 SP TYPE: PROST BX JP DR: Dr. Meghan Sanchez DO Tissues: A - PROSTATE RIGHT B - PROSTATE RIGHT C - PROSTATE RIGHT D - PROSTATE LEFT E - PROSTATE LEFT F - PROSTATE LEFT Procedures: PROSTATE BX HEADER OPERATION: Prostate biopsy PRE-OP DIAGNOSIS: Elevated PSA TISSUE SUBMITTED: A - Right apex, B - Right mid, C - Right base, D - Left apex, E - Left mid, F - Left base MICROSCOPIC DIAGNOSIS A. Right prostate, apex, core biopsy: Prostatic tissue, negative for malignancy. See comment. B. Right prostate, mid, core biopsy: Prostatic tissue, negative for malignancy. Focal mild chronic inflammation. C. Right prostate, base, core biopsy: Prostatic tissue, negative for malignancy. Focal mild chronic inflammation. D. Left prostate, apex, core biopsy: Prostatic adenocarcinoma. [place] grade: 3+3=6 Number of cores involved: 2/2 Proportion of tissue involved: ~10% Perineural invasion: Not identified. Greatest tumor length: 0.5 cm, discontinuous Focal high-grade prostatic intraepithelial neoplasia (HGPIN). See comment. E. Left prostate, mid, core biopsy: Prostatic adenocarcinoma. [place]ha grade: 4+3=7 Number of cores involved: 2/2 Proportion of tissue involved: ~20% Perineural invasion: Not identified. Greatest tumor length: 0.6 cm, discontinuous Focal high-grade prostatic intraepithelial neoplasia (HGPIN). Focal acute and chronic inflammation. See comment. F. Left prostate, base, core biopsy: Prostatic adenocarcinoma. Radha grade: 4+3=7 Number of cores involved: 1/1 Proportion of tissue involved: <5% Perineural invasion: present, focal Greatest tumor length: 0.5 cm, discontinuous See comment. SJ:aparna 08/28/2020 COMMENT A, D, E & F - Immunohistochemistry ([id number]) supports the above diagnosis. Please make reference to previous specimens ([id number]) prostate, left mid, core biopsy with diagnosis of a minute focus of adenocarcinoma and prostate, right base, core biopsy with diagnosis of focal high-grade prostatic intraepithelial neoplasia and ([id number]) left prostate, mid, core biopsy with diagnosis of prostatic adenocarcinoma and right prostate, apex, core biopsy with diagnosis of focal high-grade prostatic intraepithelial neoplasia and right prostate, base with diagnosis of focal high-grade prostatic intraepithelial neoplasia and left prostate, apex with diagnosis of focal atypical small acinar proliferation. Case has been reviewed in consultation with Dr. Rosado who concurs with the above diagnosis. IDC:AM MICROSCOPIC DESCRIPTION Slides are reviewed. GROSS DESCRIPTION A - Received is one container designated prostate, right apex. The specimen consists of two elongated fragments of light albert-white soft tissue each measuring 1.5 cm in length and 0.1 cm in diameter. The specimen is totally submitted in one cassette. B - Received is one container designated prostate, right mid. The specimen consists of two elongated fragments of light albert-white soft tissue each measuring 1 cm in length and 0.1 cm in diameter. The specimen is totally submitted in one cassette. C - Received is one container designated prostate, right base. The specimen consists of two elongated fragments of light albert-white soft tissue each measuring 1.3 cm in length and 0.1 cm in diameter. The specimen is totally submitted in one cassette. D - Received is one container designated prostate, left apex. The specimen consists of two elongated fragments of light ablert-white soft tissue each measuring 1.2 cm in length and 0.1 cm in diameter. The specimen is totally submitted in one cassette. E - Received is one container designated prostate, left mid. The specimen consists of two elongated fragments of light albert-white soft tissue each measuring 1.5 cm in length and 0.1 cm in diameter. The specimen is totally submitted in one cassette. F - Received is one container designated prostate, left base. The specimen consists of one elongated fragment of light albert-white soft tissue measuring 1 cm in length and 0.1 cm in diameter. The specimen is totally submitted in one cassette. / PATT:aparna 08/27/20 TC:0 CPT: G0146
== END ==
PROVIDERS: PCP Internal Medicine; Referring Provider Urology; Visit Provider Urology
DX: R97.20 Elevated prostate specific antigen [PSA] (principal)
CPT/HCPCS: 88305; 88341; 88342; G0416

== ENCOUNTER 2020-10-23 12:57 | Day surgery (SDC) | payer MEDICARE, MEDICAID, SELFPAY ==
[2020-08-21 13:54] VITALS: BMI 36.0
--- NOTE | 2020-10-23 07:44 | PCM.HP.STD ---
Problem List (1) Prostate cancer Status: Chronic History of Present Illness Date of Admission: 10/23/20 Chief Complaint: Prostate cancer The patient is a 75 year old male with prostate cancer has been with active surveillance by Dr. Lemons for a few years and we have noticed an increase in PSA subsequent biopsy was done and demonstrates any increased risk of prostate cancer to [place] 74+3 disease because of this the patient is elected to undergo radiation therapy plus adjuvant hormone therapy. Today oriented taken to surgery to place gold fiducial markers in the prostate for radiation treatment planning and also organ to place a spacer organ at risk gel matrix to lower the risk of rectal toxicity from the radiation. Past Medical History Past Medical History (Chronic Problems): Chronic Problems (Last Reviewed 08/21/20 @ 13:58 by Susie Patel) DJD (degenerative joint disease) (Chronic) Presence of stent in coronary artery (Chronic ~09/23/09) PCI/BMS to the prox LAD and LCX 09/23/09 Atherosclerotic heart disease of [place] coronary artery without angina pectoris (Chronic) Sinus bradycardia (Chronic) COPD (chronic obstructive pulmonary disease) (Chronic) Palpitations (Chronic) Atherosclerosis of renal artery (Chronic) PAC (premature atrial contraction) (Chronic) Essential hypertension (Chronic) Colon cancer (Chronic) Regional lymph node metastasis present (Chronic) Prostate cancer (Chronic) GERD (gastroesophageal reflux disease) (Chronic) Medical History: Medical History (Last Reviewed 08/21/20 @ 13:58 by Susie Patel) Right-sided carotid artery disease (Acute) I77.9 Presence of stent in coronary artery (Chronic) Onset Date: ~09/23/09 Z95.5 PCI/BMS to the prox LAD and LCX 09/23/09 Atherosclerotic heart disease of [place] coronary artery without angina pectoris (Chronic) I25.10 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 (Acute) C44.622 Status post Mohs procedure January 2019 Sinus bradycardia (Chronic) R00.1 COPD (chronic obstructive pulmonary disease) (Chronic) J44.9 Palpitations (Chronic) R00.2 Atherosclerosis of renal artery (Chronic) I70.1 PAC (premature atrial contraction) (Chronic) I49.1 Essential hypertension (Chronic) I10 Colon cancer (Chronic) C18.9 Regional lymph node metastasis present (Chronic) C77.9 Prostate cancer (Chronic) C61 GERD (gastroesophageal reflux disease) (Chronic) K21.9 Chest pain (Acute) R07.9 CVD (cerebrovascular disease) I67.9 TIA Cataract H26.9 Osteoarthritis M19.90 Pure hypercholesterolemia E78.00 Conjunctivitis H10.9 Dehydration (Resolved) E86.0 Educational circumstance (Resolved) Z55.9 Hypokalemia (Resolved) E87.6 Allergies DUST Adverse Reaction (Mild, Uncoded 10/16/20 12:10) Other COUGH, COLD SYMPTOMS Home Medications: Ambulatory Orders Medication Instructions Recorded Fluticasone 0.05% [Flonase Nasal 2 spray NASAL DAILY 10/21/15 [place]] Lansoprazole [Prevacid] 30 mg PO DAILY 10/21/15 Montelukast [Singulair] 10 mg PO DAILY 10/21/15 Tiotropium [place] [Spiriva 1 puff IH QHS 07/12/16 Respimat] Ondansetron [Zofran Odt] 4 mg PO Q6H PRN PRN #20 tab 08/17/17 clopidogrel 75 mg tablet 75 mg PO DAILY #90 tab 04/14/18 nitroglycerin 0.4 mg sublingual 0.4 mg SUBLINGUAL Q5M PRN #25 tab 05/29/19 tablet Aspirin E.C. [Ecotrin] 81 mg PO DAILY@0800 10/26/19 carvedilol 3.125 mg tablet 3.125 mg PO BID #180 tab 12/20/19 hydrochlorothiazide 25 mg tablet 25 mg PO DAILY #90 tab 12/20/19 acetaminophen 325 mg capsule 650 mg PO TID PRN 08/21/20 albuterol sulfate 2.5 mg INHALATION Q6H PRN 08/21/20 albuterol sulfate 90 mcg/actuation 2 puff INHALATION Q6H PRN 08/21/20 aerosol inhaler lisinopril 20 mg tablet 20 mg PO BID tab 08/21/20 simvastatin 40 mg tablet 40 mg PO QHS 08/21/20 Surgical History: Surgical History (Last Reviewed 08/21/20 @ 13:58 by Susie Patel) History of squamous cell carcinoma excision Z98.890, Z85.9 01-26-19 THELMA [facility] Presence of coronary angioplasty implant and graft Onset Date: ~09/23/09 Z95.5 PCI/BMS to the prox LAD and LCX 09/23/09 H/O colectomy Z90.49 Surgical History: no surgical history Smoking Status: Never smoker Tobacco Use: Non-smoker Review of Systems Constitutional: Denies: Chills, Fever, Weight Change HEENT: Denies: Head Aches, Sinus Congestion, Sinus Drainage Cardiovascular: Denies: Chest Pain, Palpitations Respiratory: Denies: Cough, Shortness of breath at rest, Sputum production Gastrointestinal: Denies: Abdominal Pain, Nausea, Vomiting Genitourinary: Denies: Dysuria Musculoskeletal: Denies: Joint Pain, Joint Tenderness Skin: Denies: Rash, Wounds Neurological: Denies: Numbness, Tingling, Focal weakness Psychiatric: Denies: Anxiety, Depression, Homicidal Ideations, Suicidal Ideations Hematologic/ Lymphatic: Denies: Easy Bruising, Easy Bleeding VTE Information - Inpt Only VTE Present on Admission: No VTE Mechan Device Prophylaxis: SCD's - Physical Exam Vitals/I&O's: Weight: 106.141 kg Body Mass Index (BMI) 36.0 Finger Stick Blood Glucose 127 General: Alert, Oriented x3, Cooperative HEENT: Atraumatic, PERRLA, EOMI, Normocephalic Neck: Supple, No JVD, Negative Carotid Bruits Lungs: Clear to auscultation, Normal air movement Cardiovascular: Regular rate, No murmurs Abdomen: Bowel Sounds Present, Soft, Non Tender Extremities: No edema, Capillary Refill Less than 3 Seconds Skin: No rashes, No breakdown Musculoskeletal: No Tenderness to Palpation of Joints or Extremities Neurological: Cranial nerves II-XII grossly intact Psych/Mental Status: Normal Affect, Appropriate Microbiology Past 72 Hours 10/21/20 13:00 Interface Orders SARS-CoV-2 Antigen (Rapid) - Final Current Medications Cefazolin Sodium 2 gm/ Sodium (Chloride) 110 mls @ 150 mls/hr IV PREOP ONE Stop: 10/23/20 14:43 Assessment/Plan All Active Problems (Last Reviewed 08/21/20 @ 13:58 by Susie Patel) Subcutaneous nodule of neck (Acute) Right-sided carotid artery disease (Acute) Mixed hyperlipidemia (Acute) 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 (Acute) Chest pain (Acute) Dehydration (Resolved) Educational circumstance (Resolved) Hypokalemia (Resolved) Plan to proceed with placement of gold fiducial markers in the prostate and also spacer organ at risk gel matrix.
[2020-10-23 13:35] VITALS: BP 144/76; PULSE 58; RESP 16; TEMP 36.9; O2SAT 98; BMI 34.9
[2020-10-23] MEDS: Lactated Ringers 1,000 ML 100 ML IV (13:35)
[2020-10-23] MEDS: Cefazolin 2 GM in 0.9% Normal Saline 100 ML IV (15:53)
--- NOTE | 2020-10-23 15:55 | DCINST_ITS ---
Discharge Diet: No Restrictions Discharge Activity: Return to Normal Activity, May Not Drive - for 2 days. Additional Activity Instructions:: Please be aware that pain medications may cause nausea. You should typically eat light foods as you take your pain medication. Pain medication may cause constipation, if this is a problem for you, please discuss with your doctor. Allergies/Adverse Reactions: Allergies DUST Adverse Reaction (Mild, Uncoded 10/23/20 13:33) Other COUGH, COLD SYMPTOMS Medications to take at Discharge Fluticasone 0.05% [Flonase Nasal [place]] 2 spray NASAL DAILY 10/21/15 Lansoprazole [Prevacid] 30 mg PO DAILY 10/21/15 Montelukast [Singulair] 10 mg PO DAILY 10/21/15 Tiotropium [place] [Spiriva Respimat] 1 puff IH QHS 07/12/16 Ondansetron [Zofran Odt] 4 mg PO Q6H PRN PRN #20 tab 08/17/17 clopidogrel 75 mg tablet 75 mg PO DAILY #90 tab 04/14/18 nitroglycerin 0.4 mg sublingual tablet 0.4 mg SUBLINGUAL Q5M PRN #25 tab 05/29/19 Aspirin E.C. [Ecotrin] 81 mg PO DAILY@0800 10/26/19 carvedilol 3.125 mg tablet 3.125 mg PO BID #180 tab 12/20/19 hydrochlorothiazide 25 mg tablet 25 mg PO DAILY #90 tab 12/20/19 acetaminophen 325 mg capsule 650 mg PO TID PRN 08/21/20 albuterol sulfate 2.5 mg INHALATION Q6H PRN 08/21/20 albuterol sulfate 90 mcg/actuation aerosol inhaler 2 puff INHALATION Q6H PRN 08/21/20 lisinopril 20 mg tablet 20 mg PO BID tab 08/21/20 simvastatin 40 mg tablet 40 mg PO QHS 08/21/20 Primary Care Physician: Meghan Sanchez DO [Primary Care Provider] - Test Results: Test results from this visit will be discussed in further detail at your follow- up appointment, if applicable. Please Follow Up With: Jung Pinon MD When: proceed with radiation therapy
--- NOTE | 2020-10-23 15:55 | OP.PCM_ITS ---
Problem List (1) Prostate cancer Status: Chronic Report of Operation Date of Procedure: 10/23/20 Pre-Operative Diagnosis: Prostate cancer Post-Operative Diagnosis: Same Surgery/Procedure Performed:: Transperineal placement of gold fiducial markers by ultrasound guidance. Transrectal ultrasound guidance placement of spacer organ at risk gel matrix Description of Surgical Findings:: Patient was taken back to the operating room, after induction of anesthesia, he was placed in dorsolithotomy position. The patient had a bowel prep preoperatively. He was given IV antibiotics preoperatively. He underwent a timeout procedure. He was marked and the procedure was reviewed with the operating room staff. Once he was in dorsolithotomy position. The genitals and perineum were prepped and draped in the usual sterile fashion. I then introduced a biplanar ultrasound probe into the rectum and performed ultrasonography on the prostate. The prostate seminal vesicles, the base, the mid prostate, the apex were identified. The Denonvilliers' fascia was also identified. I first advanced the first marker in the patient's right side to the mid prostate and deployed the first greige goods marker. The second greige goods marker was then advanced under ultrasound guidance to the patient's left mid prostate . And finally the third greige goods marker was advanced of the prostate left apex and deployed under ultrasound guidance. All 3 markers were confirmed to be present within the prostate on ultrasonography. I then introduced a biplanar ultrasound probe into the rectum and performed ultrasonography and identified the Denonvilliers' fascia the prostate mid base and apex and seminal vesicles. The spacer gel mix was then prepared on the back table per manufactures instruction. Under ultrasound guidance in the midline perineum a bevel needle down we advanced through the perineum below the prostate into the space of Denonvilliers' fascia. This space which could be identified by ultrasound with a bright white layer between the prostate and the rectum. I then injected a puff of normal saline to identify the space further. After I confirmed that the needle was in the correct space in the mid prostate and the space of Denonvilliers' fascia between the rectum and the prostate. Then over the course of 15 seconds the gel matrix was injected slowly there was nice separation between the prostate and the rectum at the gel matrix was injected. The position of the gel matrix was confirmed by ultrasound. Then the injection needle was removed intact. Patient's perineum was cleaned patient was taken out of stirrups and then taken back to the PACU in good condition. Type of Anesthesia:: General Drains: none - Admit VTE Documentation VTE Present on Admission: No VTE Mechan Device Prophylaxis: SCD's
[2020-10-23 16:24] VITALS: BP 111/96; BP 144/76; PULSE 60; RESP 16; TEMP 36.9; O2SAT 93
[2020-10-23 16:30] VITALS: BP 125/77; BP 144/76; PULSE 64; RESP 16; O2SAT 94
[2020-10-23 16:39] VITALS: BP 127/70; BP 144/76; PULSE 52; RESP 16; TEMP 36.3; O2SAT 95
[2020-10-23 17:10] VITALS: BP 123/75; BP 144/76; PULSE 52; RESP 16; TEMP 36.3; O2SAT 95
== END 2020-10-23 17:14 | disposition home or self-care (01) ==
LOC: SDC 12:58 → AC 12:59
PROVIDERS: PCP Internal Medicine; Referring Provider Urology; Visit Provider Urology
PROC: (CPT 55874; principal; 2020-10-23 15:00)
DX: C61 Malignant neoplasm of prostate (principal); Z20.828 Contact with and (suspected) exposure to other viral communicable diseases; I25.10 Atherosclerotic heart disease of native coronary artery without angina pectoris; J44.9 Chronic obstructive pulmonary disease, unspecified; I10 Essential (primary) hypertension; K21.9 Gastro-esophageal reflux disease without esophagitis; M19.90 Unspecified osteoarthritis, unspecified site; G25.81 Restless legs syndrome; E78.2 Mixed hyperlipidemia; Z79.899 Other long term (current) drug therapy; Z85.038 Personal history of other malignant neoplasm of large intestine; Z95.5 Presence of coronary angioplasty implant and graft; Z79.82 Long term (current) use of aspirin; Z79.02 Long term (current) use of antithrombotics/antiplatelets
CPT/HCPCS: 00902; 55875; 55876; 87426; C9803; J7120; J2405

== ENCOUNTER → 2020-11-05 11:23 | Outpatient (CLI) | payer MEDICARE, MEDICAID, SELFPAY ==
[2020-10-23 13:35] VITALS: BMI 34.9
[2020-11-05 12:41] LABS: Creatinine, Serum 1.01 mg/dL (0.70-1.30); EST Glomerular Filtration Rate 77 mL/min (>60); Est Glom Filt Rate - Afr Amer 93 mL/min (>60); PSA,Total- Diagnostic 3.35 ng/mL (0.0-4.0)
[2020-11-05 12:44] LABS: Absolute Lymphocyte Count 1.04 X10^3/uL (0.83-4.51); Absolute Neutrophil Count 4.1 X10^3/uL (2.0-7.7); Basophil# 0.04 X10^3/uL; Basophil% 0.7 % (0-1); Eosinophil# 0.15 X10^3/uL; Eosinophils% 2.5 % (0-5); Hematocrit 46.8 % (40-54); Hemoglobin 15.1 g/dL (13.0-16.5); Lymphocyte # 1.04 X10^3/ul (0.83-4.51); Lymphocyte % 17.3 % (19-41); Mean Corp Hgb Conc 32.3 g/dL (32-36); Mean Corpuscular Hgb 29.4 pg (27.0-32.0); Mean Corpuscular Volume 91.2 fL (80-94); Mean Platelet Vol. 9.5 fl (6.2-12.0); Monocyte# 0.63 X10^3/uL; Monocyte% 10.5 % (0-10); NRBC Flagged by Analyzer 0 % (0-5); Neutrophil # 4.13 X10^3/uL (2.7-7.7); Neutrophil % 68.8 % (47-70); Platelet Count 260 K/mm3 (150-450); RBC Distribution Width CV 13.2 % (11.6-14.6); RBC Distribution Width SD 44.4 fl (35.1-43.9); Red Blood Count 5.13 M/mm3 (4.6-6.2)
== END ==
PROVIDERS: PCP Internal Medicine
DX: Z01.818 Encounter for other preprocedural examination (principal); C61 Malignant neoplasm of prostate
CPT/HCPCS: 36415; 82565; 84153; 85025

== ENCOUNTER → 2020-11-06 12:41 | Outpatient (CLI) | payer MEDICARE, MEDICAID, SELFPAY ==
[2020-08-21 13:54] VITALS: BMI 36.0
[2020-10-23 13:35] VITALS: BMI 34.9
--- NOTE | 2020-11-06 12:47 | CT_ITS ---
STUDY: CT PELVIS WITH CONTRAST REASON FOR EXAM: Male, 75 years old. PROSTATE CA *RAD THERAPY. RADIATION DOSAGE (If Supplied By Facility): CTDIvol = ( 26.73 ) mGy, DLP = ( 1708.63 ) mGycm TECHNIQUE: Transaxial imaging of the pelvis was performed without oral contrast. 100 ML ISOVUE 300 was administered intravenously. Individualized dose optimization techniques were used for this CT. COMPARISON: None. FINDINGS: Normal urinary bladder. The prostate is enlarged. It measures 5.1 cm x 4.7 cm. Is evidence of central calcifications as well as prostatic metallic radiation seeds. Normal visualized small intestine. There are multiple colonic diverticula of the sigmoid colon consistent with chronic diverticulosis. There is no pelvic fluid. There is no pelvic lymphadenopathy or mass lesion. Normal visualized pelvic arteries. Small umbilical hernia containing fat. Small bilateral inguinal hernias containing fat. Degenerative changes of the lower lumbar spine and bilateral sacroiliac joints. CT/CT Pelvis W/CONT Therapy IMPRESSION: Prostatic enlargement with indentation at the bladder base. Prostatic calcifications. Prostatic radiation seeds are seen within the prostate. Electronically Signed: Tod Vasquez MD at 14:01 EDT , Service support ,
== END ==
PROVIDERS: PCP Internal Medicine
DX: C61 Malignant neoplasm of prostate (principal)
CPT/HCPCS: 51600; 72193; Q9967

== ENCOUNTER → 2020-12-04 11:13 | Outpatient (CLI) | payer MEDICARE, MEDICAID, SELFPAY ==
[2020-12-04 12:22] LABS: Absolute Lymphocyte Count 0.75 X10^3/uL (0.83-4.51); Absolute Neutrophil Count 3.2 X10^3/uL (2.0-7.7); Basophil# 0.03 X10^3/uL; Basophil% 0.6 % (0-1); Eosinophil# 0.15 X10^3/uL; Eosinophils% 3.1 % (0-5); Hematocrit 43.2 % (40-54); Hemoglobin 14.4 g/dL (13.0-16.5); Lymphocyte # 0.75 X10^3/ul (0.83-4.51); Lymphocyte % 15.6 % (19-41); Mean Corp Hgb Conc 33.3 g/dL (32-36); Mean Corpuscular Hgb 29.9 pg (27.0-32.0); Mean Corpuscular Volume 89.8 fL (80-94); Mean Platelet Vol. 9.4 fl (6.2-12.0); Monocyte% 14.6 % (0-10); NRBC Flagged by Analyzer 0 % (0-5); Neutrophil # 3.17 X10^3/uL (2.7-7.7); Neutrophil % 65.9 % (47-70); Platelet Count 264 K/mm3 (150-450); RBC Distribution Width CV 13.3 % (11.6-14.6); RBC Distribution Width SD 43.9 fl (35.1-43.9); Red Blood Count 4.81 M/mm3 (4.6-6.2); White Blood Count 4.8 K/mm3 (4.4-11.0)
== END ==
PROVIDERS: PCP Internal Medicine; Referring Provider Radiology Radiation Oncology; Visit Provider Radiology Radiation Oncology
DX: C61 Malignant neoplasm of prostate (principal)
CPT/HCPCS: 36415; 85025

== ENCOUNTER → 2020-12-13 11:24 | Outpatient (CLI) | payer MEDICARE, MEDICAID, SELFPAY ==
[2020-12-13 11:28] LABS: Bacteria 0 SEEN /hpf (None Seen); Mucous, Urine 0 SEEN /hpf (<or=2+); Red Blood Cells-Urine 0 SEEN /hpf (0-5); Squamous Epithelial Cells - UA 0 SEEN /hpf (0-5); White Blood Cells 0 SEEN /hpf (0-5)
[2020-12-13 13:10] LABS: Color, Urine Yellow (Yellow); Glucose, Dipstick Normal (Normal); Ketone-Dipstick Negative (Negative); Leukocyte Esterase-Dipstick Negative /ul (Negative); Nitrite-Dipstick Negative (Negative); Occult Blood-Urine 10 /ul (Negative); Protein-Dipstick Negative (Negative); Urine Bilirubin Dipstick Negative (Negative); Urine Clarity Clear (Clear); Urine Urobilinogen Normal (Normal)
== END ==
PROVIDERS: PCP Internal Medicine; Visit Provider Radiology Radiation Oncology
DX: R31.9 Hematuria, unspecified (principal); Z85.46 Personal history of malignant neoplasm of prostate
CPT/HCPCS: 81001

== ENCOUNTER → 2021-03-13 06:09 | Outpatient (CLI) | payer MEDICARE, MEDICAID, SELFPAY ==
[2021-02-26 09:06] VITALS: BMI 35.7
--- NOTE | 2021-03-13 13:23 | STRESSREP ---
Stress Test Report Date: 03-13-2021 Procedure: Pharmacologic stress nuclear imaging study Indications: Chest pain; CAD; PCI Consent: Per the patient Procedure: The patient underwent pharmacologic (Regadenoson 0.4mg ) evaluation with a peak heart rate of 84 beats per minute (57%predicted maximal heart rate) and a peak blood pressure of 144/80 mmHg. The baseline ECG demonstrated normal sinus rhythm. The peak pharmacologic ECG demonstrated no obvious ECG changes. There were no cardiac dysrhythmias pretest, during pharmacologic infusion, or recovery. There was no complaint of chest discomfort during pharmacologic infusion or recovery. The examination was discontinued secondary to completion of protocol. Impression: 1. Pharmacologic (Regadenoson) evaluation 2. Peak pharmacologic ECG with no obvious ECG changes. 3. There were no cardiac dysrhythmias pretest, during pharmacologic infusion, or recovery. 4. Nuclear images pending Myocardial perfusion imaging study: Technique: The patient was injected with 15.0 millicuries of technetium 99m Cardiolite and subsequently rest SPECT Cardiolite nuclear imaging was obtained in the horizontal long, vertical long, and short axis views. The patient underwent pharmacologic (Regadenoson) evaluation with a peak heart rate of 84 beats per minute (57% percent predicted maximal heart rate) and a peak blood pressure of 144/80 mmHg. The patient was injected with 45.0 millicuries of technetium 99m Cardiolite and subsequently stress SPECT Cardiolite nuclear imaging was obtained in the horizontal long, vertical long, and short axis views. A gated Cardiolite study at peak stress was obtained. Interpretation: Rest and stress SPECT Cardiolite nuclear imaging status post realignment, normalization, and attenuation correction demonstrate relative uniform tracer uptake and myocardial perfusion appearing within normal limits. There is end systolic thickening and brightening. The gated Cardiolite study demonstrates myocardial thickening and inward wall motion. The reported LVEF is 69%. Impression: 1. Rest and stress SPECT Cardiolite nuclear imaging demonstrate relative uniform tracer uptake and myocardial perfusion appearing within normal limits. 2. The gated Cardiolite study reports an LVEF of 69%. This note was generated with Cinematiqueation software. It may contain incorrect words, spelling, and punctuation that were not noted in checking the note before signing.
== END ==
PROVIDERS: PCP Internal Medicine; Referring Provider Physician Assistant Medical; Visit Provider Physician Assistant Medical
DX: R07.9 Chest pain, unspecified (principal)
CPT/HCPCS: 78452; 93017; A9500; A4216; J2785

== ENCOUNTER → 2021-05-06 09:28 | Outpatient (CLI) | payer MEDICARE, MEDICAID, SELFPAY ==
[2021-05-06 11:31] LABS: PSA,Total- Diagnostic 0.36 ng/mL (0.0-4.0)
== END ==
PROVIDERS: PCP Internal Medicine; Referring Provider Urology; Visit Provider Urology
DX: C61 Malignant neoplasm of prostate (principal)
CPT/HCPCS: 36415; 84153

== ENCOUNTER 2021-12-06 11:59 | Emergency (ER) | payer MEDICARE, MEDICAID, SELFPAY ==
[2021-12-06] VITALS (14 sets, daily range): BP systolic 117–174; BP diastolic 62–110; PULSE 53–75; RESP 11–23; TEMP 36.9–37; O2SAT 93–99; BMI 36.5
--- NOTE | 2021-12-06 12:19 | RAD_ITS ---
STUDY: X-RAY CHEST REASON FOR EXAM: Male, 76 years old. Neuro deficit, acute, stroke suspected TECHNIQUE: Single AP portable view of the chest. COMPARISON: 2016 FINDINGS: EKG leads overlie the chest. The lungs are clear and expanded. There is no demonstrated pleural abnormality. Normal size heart. Normal mediastinum and alexandre. Normal visualized pulmonary arteries. There is atherosclerotic calcification of the aortic arch with tortuosity. There are diffuse degenerative changes of the visualized thoracic spine. There is degenerative osteoarthritis of the bilateral shoulders. There is no demonstrated abnormality of the visualized soft tissue structures of the upper abdomen. RAD/Chest 1 View IMPRESSION: No acute pulmonary process, no interval change Electronically Signed: Donald Dunlap MD at 13:04 EDT ,
--- NOTE | 2021-12-06 12:19 | CT_ITS ---
STUDY: CT HEAD STROKE PROTOCOL W/O CONTRAST INJECTION REASON FOR EXAM: Male, 76 years old. Acute mental status change RADIATION DOSAGE (If Supplied By Facility): CTDIvol = ( ) mGy, DLP = ( ) mGycm TECHNIQUE: Transaxial CT imaging of the brain was performed without administration of intravenous contrast material. Individualized dose optimization techniques were used for this CT. COMPARISON: 2016 FINDINGS: Normal soft tissue structures. Normal calvarium. Normal size ventricles and extra-axial spaces for the patient''s age. Normal white matter tracts of the cerebral hemispheres. Normal basal ganglia and thalami. Normal brainstem. Normal cerebellum. There is no intracranial hemorrhage. There are no findings of an acute ischemic infarction. Normal visualized paranasal sinuses. ASPECT score: 10 CT/STROKE Brain/Head without Cont IMPRESSION: Age consistent changes, no acute findings N.B. : The above Results were Read Back by Donald Dunlap MD to Renetta Johnson MD, and understanding confirmed on 12/06/2021 12:42:51 (ET). Electronically Signed: Donald Dunlap MD at 12:44 EDT ,
--- NOTE | 2021-12-06 12:19 | EKG12_ITS ---
Test Reason : STROKE ALERT Blood Pressure : / mmHG Vent. Rate : 066 BPM Atrial Rate : 066 BPM P-R Int : 134 ms QRS Dur : 100 ms QT Int : 394 ms P-R-T Axes : 050 011 -02 degrees QTc Int : 413 ms Normal sinus rhythm with sinus arrhythmia Normal ECG Confirmed by ARGENIS WOMACK, IVIS ([id number]), newspaper copy editor VINNIE MCNEIL ([id number]) on 12/08/2021 11:35:05 AM Referred By: DC Confirmed By:IVIS MORE MD
--- NOTE | 2021-12-06 12:20 | CT_ITS ---
STUDY: CTA HEAD AND NECK WITH CONTRAST REASON FOR EXAM: Male, 76 years old. Neuro deficit, acute, stroke suspected RADIATION DOSAGE (If Supplied By Facility): CTDIvol = ( 22.6 ) mGy, DLP = ( 723.85 ) mGycm TECHNIQUE: CT angiography was performed with a multi-detector CT scanner. Data acquisition was obtained from the skull base through the vertex following intravenous administration of IV 100mL Isovue-370. MIP images were reconstructed from the axial data set. Post-processing of the angiographic images was performed, with multiplanar reformation and 3D reconstruction. Individualized dose optimization techniques were used for this CT. COMPARISON: No relevant priors. FINDINGS: Normal bilateral petrous carotid arteries. Normal right cavernous carotid artery with a normal supraclinoid bifurcation. Normal left cavernous carotid artery with a normal supraclinoid bifurcation. There is hypoplastic development of the right A1 segment of the anterior cerebral arteries with an atretic but intact artery. Normal left A1 segments of the anterior cerebral artery. Normal intact anterior communicating artery (ACOM). Normal bilateral A2 segments of the anterior cerebral arteries. Normal right M1 and M2 segments of the middle cerebral arteries, with a normal M1 bifurcation. Normal left M1 and M2 segments of the middle cerebral arteries, with a normal M1 bifurcation. Normal right posterior communicating artery (PCOM). Normal left posterior communicating artery (PCOM). There is a small atretic right vertebral artery with a dominant left vertebral artery. Normal basilar artery with a normal basilar bifurcation. The visualized bilateral superior cerebellar (SCA) arteries are normal. Normal bilateral P1, P2 and visualized P3 segments of the posterior cerebral arteries. There is no demonstrated aneurysm of the [place]. There is no demonstrated abnormality of the visualized brain. AORTIC ARCH: Normal visualized aortic arch. Normal origins of the brachiocephalic, left common carotid, and left subclavian arteries. RIGHT CAROTID ARTERIES: Normal right common carotid artery (CCA). There is mild atherosclerotic plaque formation with minimal narrowing of the right carotid bulb. There is mild atherosclerotic plaque formation of the origin of the right internal carotid artery with less than 50% cross sectional diameter stenosis, stenosis estimated at 30%. Normal visualized cervical portion of the right internal carotid artery. Normal origin of the right external carotid artery (ECA). LEFT CAROTID ARTERIES: Normal left common carotid artery (CCA). There is moderate atherosclerotic plaque formation with moderate narrowing of the carotid bulb, stenosis estimated at 50%. Peripheral calcifications noted in the proximal left ICA with prominent plaque formation causing estimated stenosis of approximately 75% in the proximal left ICA before resumes its normal course and caliber. Normal visualized cervical portion of the left internal carotid artery. Normal origin of the left external carotid artery (ECA). VERTEBRAL ARTERIES: There is enhancement within the bilateral vertebral arteries with a small right vertebral artery, and a dominant left vertebral artery. No suspicious enhancing lesion, airway narrowing or deviation. Degenerative changes noted throughout the cervical spine. 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 : The above Results were Read Back by Donald Dunlap MD to Renetta Johnson MD, and understanding confirmed on 12/06/2021 13:57:48 (ET). Electronically Signed: Donald Dunlap MD at 13:58 EDT ,
--- NOTE | 2021-12-06 12:21 | EX.ED.DYSGE1 ---
HPI History of Present Illness Chief Complaint: Lower Extremity Injury Detail of Chief Complaint: Right leg weakness that he noticed upon waking this morning Informant: patient Narrative Narrative: Patient presents to the emergency department complaint of weakness in his right leg upon waking this morning about 8:30 AM. Patient states that he had a hard time sitting up in bed and had some numbness and tingling to the right upper arm and his right leg did not feel right. Patient try to stand on it and it gave way and he fell on to a clothes basket. Patient denies any injury from the fall. Patient unable to ambulate because of the leg not feeling right. He denies prior stroke. Patient states he has had similar issue in the past that they thought was related to a pinched nerve. Patient on aspirin and Plavix. He denies difficulty with speech or vision. 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 Cataract Chest pain Colon cancer Conjunctivitis COPD (chronic obstructive pulmonary disease) CVD (cerebrovascular disease) Dehydration Educational circumstance Essential hypertension GERD (gastroesophageal reflux disease) Hypokalemia Osteoarthritis PAC (premature atrial contraction) Palpitations Presence of stent in coronary artery (~09/23/09) Prostate cancer Pure hypercholesterolemia Regional lymph node metastasis present Right-sided carotid artery disease Sinus bradycardia 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 Home Medications fluticasone propionate 2 spray NASAL DAILY 10/21/15 [History Last Taken Unknown] lansoprazole 30 mg PO DAILY 10/21/15 [History Last Taken 10/23/20 09:30] montelukast 10 mg PO DAILY 10/21/15 [History Last Taken Unknown] ondansetron 4 mg PO Q6H PRN PRN #20 tab 08/17/17 [Rx Last Taken Unknown] clopidogrel 75 mg tablet 75 mg PO DAILY #90 tab 04/14/18 [Rx Last Taken 10/15/20] nitroglycerin 0.4 mg sublingual tablet 0.4 mg SUBLINGUAL Q5M PRN #25 tab 05/29/19 [Rx Last Taken Unknown] aspirin 81 mg PO DAILY@0800 10/26/19 [History Last Taken 10/15/20] carvedilol 3.125 mg tablet 3.125 mg PO BID #180 tab 12/20/19 [Rx Last Taken 10/23/20 09:30] acetaminophen 325 mg capsule 650 mg PO TID PRN 08/21/20 [History Last Taken Unknown] albuterol sulfate 2.5 mg INHALATION Q6H PRN 08/21/20 [History Last Taken Unknown] albuterol sulfate 90 mcg/actuation aerosol inhaler 2 puff INHALATION Q6H PRN 08/21/20 [History Last Taken Unknown] simvastatin 40 mg tablet 40 mg PO QHS 08/21/20 [History Last Taken Unknown] donepezil 5 mg tablet 5 mg PO DAILY 02/26/21 [History Last Taken Unknown] hydrochlorothiazide 25 mg PO DAILY 12/06/21 [History Last Taken Unknown] lisinopril 20 mg PO DAILY 12/06/21 [History Last Taken Unknown] tiotropium bromide [Spiriva Respimat] 2 puff INHALATION DAILY 12/06/21 [History Last Taken Unknown] Allergy/AdvReac Type Severity Reaction Status Date / Time DUST AdvReac Mild Other Uncoded 12/06/21 12:00 Family History Father Heart murmur Mother Heart disease Hypertension Brother Colon cancer Brother Colon cancer Surgical History H/O colectomy History of squamous cell carcinoma excision Presence of coronary angioplasty implant and graft (~09/23/09) Social History Smoking Status: Never smoker alcohol intake: never substance use type: does not use caffeine: Yes Type: coffee Number of servings: 5 what type of physical activity do you participate in: aerobics and other frequency: daily duration: 15-30 minutes/day seatbelt use: always do you feel safe at home: Yes ROS ROS ED Constitutional Constitutional ED: Reports systems reviewed and no addt'l complaints, except as documented; Denies body ache(s), change in weight or chills Eyes Eyes: Denies acute decrease in peripheral vision, change in vision, double vision or loss of vision ENT ENT ED: Reports none; Denies ear pain, lip swelling, loss taste/smell, neck pain, otalgia or sore throat Cardiovascular Cardiovascular: Reports none; Denies abdominal pain, chest pain with activity, leg edema, lightheadedness, palpitations, rapid heart rate or syncope Respiratory/Chest Respiratory/Chest: Reports none; Denies change in mental status, dry cough, dyspnea, hemoptysis, shortness of breath at rest or shortness of breath with exertion Gastrointestinal Gastrointestinal: Reports none; Denies abdominal pain, change in stool character, diarrhea, hematemesis, hematochezia, melena, rectal bleeding or vomiting Genitourinary Genitourinary ED: Reports none; Denies abdominal discomfort, anuria, dysuria, genital pain or polyuria Musculoskeletal Musculoskeletal: Reports none and other Details: Right leg weakness ; Denies arthralgias, back pain, difficulty walking, extremity pain, muscle weakness or myalgias Integumentary Reports none; Denies abscess or rash Neurologic Neurologic: Reports none, paresthesias and weakness; Denies abnormal gait, confusion, focal weakness, frequent falls, headache(s), loss of vision, numbness, radicular pain or vertigo Psychiatric Psychiatric: Reports systems reviewed and no addt'l complaints, except as documented and none; Denies behavioral changes, confusion, difficulty concentrating, hallucinations, suicidal ideation, tactile hallucinations or visual hallucinations Endocrine Endocrinology: Denies none, cold intolerance, excessive sweating, fatigue or heat intolerance Hematologic/Lymphatic Hematologic/Lymphatic: Reports none; Denies anemia, easy bleeding or easy bruising Allergic/Immunologic Allergic/Immunologic ED: Denies as per HPI, none, lip swelling, mouth swelling, throat swelling, tongue swelling or hives EXAM Physical Exam Const Vital Signs: 12/06/21 12:00 12/06/21 12:31 12/06/21 12:56 Temperature 98.4 F Temperature Source Temporal Pulse Rate 71 69 Respiratory Rate 17 23 H Blood Pressure 147/82 H 166/88 H Blood Pressure Mean 103 114 Pulse Ox 96 97 Oxygen Delivery Method Room Air Room Air Room Air 12/06/21 13:00 12/06/21 13:30 12/06/21 14:00 Temperature Temperature Source Pulse Rate 72 72 75 Respiratory Rate 20 H 16 20 H Blood Pressure 158/90 H 150/102 H 174/110 H Blood Pressure Mean 112 118 131 Pulse Ox 93 95 96 Oxygen Delivery Method Room Air Room Air Room Air Positive well nourished and well developed General Appearance ED: well developed and NAD HEENT Reports TM's clear and moist mucous membranes normocephalic and atraumatic; Negative for trauma or tenderness Tympanic Membrane ED: Yes TM's clear Eyes PERRL and EOMs intact bilaterally General Eye ED: Negative for pale conjunctiva or scleral icterus Neck no lymphadenopathy, supple and no JVD General: Negative for tenderness Chest Wall inspection of chest normal and palpation of chest normal Chest: Negative for tenderness Resp normal respiratory effort and clear to auscultation bilaterally Effort and Inspection: Negative for respiratory distress or pain with movement Auscultation: Negative for rhonchi, wheezes or diminished lung sounds Cardio regular rate, regular rhythm, S1 normal heart sound, S2 normal heart sound and no murmurs Peripheral Pulses: pulses 2+ throughout GI normal to inspection, nondistended, normoactive bowel sounds, soft to palpation, non-tender, non-distended and no masses Back/Spine no CVA tenderness and no thoracic nor lumbar tenderness Extremity normal to inspection General Extremety ED: Negative for edema General Extremity: Negative for edema Neuro oriented x3, CN's II-XII intact bilaterally, no sensory deficits noted and gait normal Neuro Narrative: NIH stroke scale of 3 given for decree sensation to the right leg and weakness of the right leg compared to the opposite side. Patient is able to lift the leg off the bed however it falls before 5 seconds. Sensorium / Orientation: awake, alert, oriented to person, oriented to place and oriented to time Motor Exam: strength 5/5 throughout and strength abnormal Psych mental status grossly normal Skin no rashes or lesions noted and no wounds MDM MDM MDM Narrative Medical decision making narrative: IV line established on arrival. A stroke team was called on arrival. Patient is not to be a thrombolytic candidate based on the fact that he woke up with symptoms. Patient CT brain was significant only for chronic involutional changes. CTA of the head and neck obtained showed 80% stenosis at the left ICA due to thrombus and calcified plaque. I discussed case with [facility] neurologist who accepted transfer of patient to their facility for definitive care. Lab Data Attestation: I reviewed the patient's lab results. Labs: Laboratory Results - last 24 hr 12/06/21 12/06/21 12/06/21 12:31 12:45 12:45 WBC 6.6 RBC 4.80 Hgb 15.1 Hct 43.8 MCV 91.3 MCH 31.5 MCHC 34.5 RDW Std Deviation 45.8 H RDW Coeff of Harish 13.4 Plt Count 255 MPV 9.5 Immature Gran % (Auto) 0.200 Neut % (Auto) 82.2 H Lymph % (Auto) 9.5 L Levy % (Auto) 7.5 Eos % (Auto) 0.3 Baso % (Auto) 0.3 Absolute Neuts (auto) 5.5 Absolute Lymphs (auto) 0.63 L Nucleated RBC % 0 PT 13.3 INR 1.0 APTT 26.3 Sodium Potassium Chloride Carbon Dioxide Anion Gap BUN Creatinine Estim Creat Clear Calc Est GFR (MDRD) Af Amer Est GFR (MDRD) Non-Af BUN/Creatinine Ratio Glucose Calcium Troponin I High Sens POC Glucose 114 H 12/06/21 12:45 WBC RBC Hgb Hct MCV MCH MCHC RDW Std Deviation RDW Coeff of Harish Plt Count MPV Immature Gran % (Auto) Neut % (Auto) Lymph % (Auto) Levy % (Auto) Eos % (Auto) Baso % (Auto) Absolute Neuts (auto) Absolute Lymphs (auto) Nucleated RBC % PT INR APTT Sodium 138 Potassium 3.4 L Chloride 105 Carbon Dioxide 26.0 Anion Gap 7 BUN 14 Creatinine 1.03 Estim Creat Clear Calc 60.87 Est GFR (MDRD) Af Amer 91 Est GFR (MDRD) Non-Af 75 BUN/Creatinine Ratio 13.6 Glucose 110 H Calcium 9.3 Troponin I High Sens 6 POC Glucose Radiography Chest X-Ray - ED: 1 View Diagnostic Testing: Clinical Impression(s) from Imaging Studies Brain CT 12/06/21 12:19 IMPRESSION: Age consistent changes, no acute findings N.B. : The above Results were Read Back by Donald Dunlap MD to Renetta Johnson MD, and understanding confirmed on 12/06/2021 12:42:51 (ET). 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 : The above Results were Read Back by Donald Dunlap MD to Renetta Johnson MD, and understanding confirmed on 12/06/2021 13:57:48 (ET). Electronically Signed: Donald Dunlap MD at 13:58 EDT Reading Location ID and State: [id number] 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 : The above Results were Read Back by Donald Dunlap MD to Renetta Johnson MD, and understanding confirmed on 12/06/2021 13:57:48 (ET). Electronically Signed: Donald Dunlap MD at 13:58 EDT , 1 view chest x-ray obtained interpreted by myself as no acute disease process. EKG Initial EKG: Attestation: I personally reviewed and interpreted this EKG as follows: Comments: Sinus rhythm with a ventricular rate of 66 bpm with occasional PACs. Discharge Plan Triage Chief Complaint: Lower Extremity Injury ED Provider: Renetta Johnson Dx/Rx/DC Orders Clinical Impression: Acute CVA (cerebrovascular accident), Acute stroke due to stenosis of left carotid artery Prescriptions: No Action clopidogrel 75 mg tablet 75 mg PO DAILY Qty: 90 RF: 3 nitroglycerin 0.4 mg tablet, sublingual 0.4 mg sublingual Q5M PRN (Reason: Chest Pain) Qty: 25 RF: 1 carvedilol 3.125 mg tablet 3.125 mg PO BID Qty: 180 RF: 3 simvastatin 40 mg tablet 40 mg PO QHS RF: 0 albuterol sulfate [Proventil HFA] 90 mcg/actuation HFA aerosol inhaler 2 puff INHALATION Q6H PRN (Reason: Sob &/Or Wheezing) RF: 0 albuterol sulfate 2.5 mg /3 mL (0.083 %) solution for nebulization 2.5 mg INHALATION Q6H PRN (Reason: Sob &/Or Wheezing) RF: 0 donepezil 5 mg tablet 5 mg PO DAILY RF: 0 lansoprazole 30 MG capsule 30 mg PO DAILY RF: 0 montelukast 10 MG tablet 10 mg PO DAILY RF: 0 fluticasone propionate 1 SPRAY spray,suspension 2 spray NASAL DAILY RF: 0 aspirin 81 MG tablet 81 mg PO DAILY@0800 RF: 0 acetaminophen 325 mg capsule 650 mg PO TID PRN (Reason: Pain 1-10 Or Fever) RF: 0 ondansetron 4 MG tablet 4 mg PO Q6H PRN PRN (Reason: Nausea) Qty: 20 RF: 0 Spiriva Respimat 2.5 mcg/actuation mist 2 puff INHALATION DAILY RF: 0 lisinopril 20 mg tablet 20 mg PO DAILY RF: 0 hydrochlorothiazide 25 mg tablet 25 mg PO DAILY RF: 0 Primary Care Provider: Meghna Sanchez Referrals: Meghan Sanchez DO [Primary Care Provider] - Disposition Disposition: Transfer to Another Type [facility]CF
[2021-12-06] MEDS: 0.9% Normal Saline 1,000 ML 100 ML IV (13:06)
[2021-12-06 13:08] LABS: Absolute Lymphocyte Count 0.63 X10^3/uL (0.83-4.51); Absolute Neutrophil Count 5.5 X10^3/uL (2.0-7.7); Basophil# 0.02 X10^3/uL; Basophil% 0.3 % (0-1); Eosinophil# 0.02 X10^3/uL; Eosinophils% 0.3 % (0-5); Hematocrit 43.8 % (40-54); Hemoglobin 15.1 g/dL (13.0-16.5); Lymphocyte # 0.63 X10^3/ul (0.83-4.51); Lymphocyte % 9.5 % (19-41); Mean Corp Hgb Conc 34.5 g/dL (32-36); Mean Corpuscular Hgb 31.5 pg (27.0-32.0); Mean Corpuscular Volume 91.3 fL (80-94); Mean Platelet Vol. 9.5 fl (6.2-12.0); Monocyte% 7.5 % (0-10); NRBC Flagged by Analyzer 0 % (0-5); Neutrophil # 5.46 X10^3/uL (2.7-7.7); Neutrophil % 82.2 % (47-70); Partial Thromboplast Time 26.3 Seconds (24.1-36.2); Platelet Count 255 K/mm3 (150-450); Prothrombin Time (Protime)PT. 13.3 SECONDS (11.7-14.9); RBC Distribution Width CV 13.4 % (11.6-14.6); RBC Distribution Width SD 45.8 fl (35.1-43.9); White Blood Count 6.6 K/mm3 (4.4-11.0)
[2021-12-06 13:15] LABS: Bedside Glucose 114 mg/dL (74-106)
[2021-12-06 13:16] LABS: Anion Gap 7 (5-15); BUN 14 mg/dL (7-18); BUN/Creat Ratio 13.6 RATIO (10-20); Calcium,Total 9.3 mg/dL (8.5-10.1); Chloride 105 mmol/L (98-107); Creatinine, Serum 1.03 mg/dL (0.70-1.30); EST Glomerular Filtration Rate 75 mL/min (>60); Est Glom Filt Rate - Afr Amer 91 mL/min (>60); Estimated Creatinine Clearance 60.87 ml/min; Glucose 110 mg/dL (74-106); Potassium 3.4 mmol/L (3.5-5.1); Sodium Level 138 mmol/L (136-145); Troponin-I HS 6 pg/mL (3.0-78.0)
== END 2021-12-06 18:48 | disposition other institution (70) ==
PROVIDERS: Emergency Provider Emergency Medicine; PCP Internal Medicine; Visit Provider Emergency Medicine
DX: I63.232 Cerebral infarction due to unspecified occlusion or stenosis of left carotid arteries (principal); G81.91 Hemiplegia, unspecified affecting right dominant side; J44.9 Chronic obstructive pulmonary disease, unspecified; R29.703 NIHSS score 3; I25.10 Atherosclerotic heart disease of native coronary artery without angina pectoris; I10 Essential (primary) hypertension; E78.00 Pure hypercholesterolemia, unspecified; Z79.82 Long term (current) use of aspirin; Z79.02 Long term (current) use of antithrombotics/antiplatelets; Z79.899 Other long term (current) drug therapy; Z95.5 Presence of coronary angioplasty implant and graft
CPT/HCPCS: 70450; 70496; 70498; 71045; 80048; 82962; 84484; 85025; 85610; 85730; 93005; 99285; Q9967; A4216

== ENCOUNTER → 2022-03-26 | Outpatient (CLI) | payer MEDICARE, MEDICAID, SELFPAY | END | disposition home or self-care (01) | LOC: PSN 13:43 | PROVIDERS: PCP Internal Medicine; Referring Provider Internal Medicine; Visit Provider Internal Medicine | DX: Z51.81 Encounter for therapeutic drug level monitoring (principal); R00.1 Bradycardia, unspecified | CPT/HCPCS: 93225; 93226 ==

== ENCOUNTER → 2022-03-31 | Outpatient (CLI) | payer MEDICARE, MEDICAID, SELFPAY | END | disposition home or self-care (01) | LOC: LAB 15:29 | PROVIDERS: PCP Internal Medicine; Referring Provider Registered Nurse; Visit Provider Registered Nurse | DX: C61 Malignant neoplasm of prostate (principal) | CPT/HCPCS: 36415; 84153 ==

== ENCOUNTER 2022-06-16 15:04 | Outpatient (RCR) | payer MEDICARE, MEDICAID, SELFPAY ==
[2022-06-16 15:21] LABS: Absolute Lymphocyte Count 1.08 X10^3/uL (0.83-4.51); Absolute Neutrophil Count 5.7 X10^3/uL (2.0-7.7); Basophil# 0.06 X10^3/uL; Basophil% 0.8 % (0-1); Eosinophil# 0.09 X10^3/uL; Eosinophils% 1.2 % (0-5); Lymphocyte # 1.08 X10^3/ul (0.83-4.51); Lymphocyte % 14.5 % (19-41); Mean Corp Hgb Conc 33.3 g/dL (32-36); Mean Corpuscular Hgb 30.8 pg (27.0-32.0); Mean Corpuscular Volume 92.5 fL (80-94); Mean Platelet Vol. 8.8 fl (6.2-12.0); Monocyte# 0.56 X10^3/uL; Monocyte% 7.5 % (0-10); NRBC Flagged by Analyzer 0 % (0-5); Neutrophil # 5.66 X10^3/uL (2.7-7.7); Neutrophil % 75.7 % (47-70); Platelet Count 293 K/mm3 (150-450); RBC Distribution Width CV 12.8 % (11.6-14.6); RBC Distribution Width SD 43.7 fl (35.1-43.9); Red Blood Count 5.19 M/mm3 (4.6-6.2); White Blood Count 7.5 K/mm3 (4.4-11.0)
[2022-06-16 15:38] LABS: ALB/GLOB Ratio 1.2 RATIO (0.9-2.4); AST(SGOT) 30 U/L (15-37); Alanine Aminotransfer ALT/SGPT 30 U/L (16-61); Albumin, Serum 4.2 g/dL (3.2-5.0); Alkaline Phosphatase 73 U/L (45-117); Anion Gap 7 (5-15); BUN 9 mg/dL (7-18); BUN/Creat Ratio 8.7 RATIO (10-20); Chloride 102 mmol/L (98-107); Creatinine, Serum 1.03 mg/dL (0.70-1.30); EST Glomerular Filtration Rate 75 mL/min (>60); Est Glom Filt Rate - Afr Amer 91 mL/min (>60); Globulin 3.6 g/dL (2.2-4.2); Glucose 107 mg/dL (74-106); Potassium 3.6 mmol/L (3.5-5.1); Protein, Total 7.8 g/dL (6.4-8.2); Sodium Level 138 mmol/L (136-145)
[2022-06-16 23:17] LABS: Xtra Tube EP Lab EXTRA TUBE
== END 2022-06-17 23:59 ==
LOC: PAVLAB 15:04
PROVIDERS: PCP Internal Medicine; Referring Provider Nurse Practitioner Family; Visit Provider Nurse Practitioner Family
DX: C18.4 Malignant neoplasm of transverse colon (principal); Z85.038 Personal history of other malignant neoplasm of large intestine
CPT/HCPCS: 36415; 80053; 82378; 85025

== ENCOUNTER → 2022-06-24 | Outpatient (CLI) | payer MEDICARE, MEDICAID, SELFPAY ==
--- NOTE | 2022-06-24 12:47 | ART_ITS ---
Reason For Study: PVD Procedure A bilateral lower extremity continuous wave Doppler with analog waveform analysis and ankle brachial indexes. Left Segmental Pressures Left brachial= 122mmHg. Left posterior tibial artery = 147mmHg. Left dorsalis pedis artery = 136mmHg. The left dorsalis pedis waveforms are triphasic. The left posterior tibial artery waveforms are triphasic. Right Segmental Pressures Right brachial= 126mmHg. Right posterior tibial artery = 146mmHg. Right dorsalis pedis artery = 136mmHg. The right dorsalis pedis waveforms are triphasic. The right posterior tibial artery waveforms are triphasic. Indices The right ankle brachial index by the dorsalis pedis is 1.08. The right ankle brachial index by the posterior tibial artery is 1.16. The left ankle brachial index by the dorsalis pedis is 1.17. VL/Ankle Brachial Index Interpretation Summary Triphasic Doppler waveforms are noted at ankle level bilaterally. Pulse-volume recordings are diminished at digital level bilaterally, but satisfactory at ankle level bilate rally. Resting ankle- brachial indices are normal bilaterally. There is no evidence of significant arterial occlusive disease in the lower ext remities bilaterally. Ordering Physician: Meghan Miller Referring Physician: MEGHAN MILLER MD Performed By: Jazz Doll RVT
== END | disposition home or self-care (01) ==
LOC: CVS 12:45
PROVIDERS: PCP Internal Medicine; Referring Provider Internal Medicine; Visit Provider Internal Medicine
DX: I73.9 Peripheral vascular disease, unspecified (principal)
CPT/HCPCS: 93922

== ENCOUNTER → 2022-07-08 | Outpatient (CLI) | payer MEDICARE, MEDICAID, SELFPAY ==
--- NOTE | 2022-07-08 12:54 | CDU_ITS ---
Reason For Study: S/P LT CAROTID ENDARTECTOMY/STENT Rt. Velocities/BP Lt. Velocities/BP Prox CCA 110.2/25.6 cm/sec. Prox CCA 131.3/29.0 cm/sec. Mid CCA 134.6/29.0 cm/sec. Mid CCA 96.6/23.6 cm/sec. Dist CCA 134.4/34.0 cm/sec. Dist CCA 113.1/27.2 cm/sec. Prox ICA 107.0/15.7 cm/sec. Prox ICA 94.8/29.0 cm/sec. Mid ICA 89.5/20.8 cm/sec. Mid ICA 80.9/18.3 cm/sec. Dist ICA 71.1/22.0 cm/sec. Dist ICA 92.0/33.0 cm/sec. Rt. ICA/CCA = 107.0/134.6=0.80. Lt. ICA/CCA = 94.8/96.6=1.0. Prox ECA 165.5/19.4 cm/sec. Prox ECA 111.2/25.4 cm/sec. Rt. Vert. 32.0/10.3 cm/sec. Lt. Vert. 55.1/19.5 cm/sec. Right Extracranial There is homogeneous, smooth atherosclerotic plaque noted in the right common carotid artery. There is heterogeneous, irregular atherosclerotic plaque noted in the right internal carotid artery. There is intimal thickening but no significant atherosclerotic plaque noted in the right external carotid artery. Antegrade flow is noted in the right vertebral artery. Left Extracranial There is homogeneous, smooth atherosclerotic plaque noted in the left common carotid artery. There is intimal thickening but no significant atherosclerotic plaque noted in the left internal carotid artery. There is intimal thickening but no significant atherosclerotic plaque noted in the left external carotid artery. The left external carotid artery is not well visualized. Antegrade flow is noted in the left vertebral artery. Procedure Carotid Duplex 49270. This is a Carotid Duplex examination using B-mode, color flow and specral Doppler. Exam performed in department. VL/Carotid Duplex Ultrasound Interpretation Summary Mild (<50%) stenosis right extracranial internal carotid. Mild (<50%) stenosis left extracranial internal carotid. Patent and antegrade vertebrals bilaterally. Ordering Physician: Nabil Soto Referring Physician: Meghan Sanchez Performed By: Crhissy Foss, THADDEUS, RVT
== END | disposition home or self-care (01) ==
LOC: CVS 12:49
PROVIDERS: PCP Internal Medicine; Referring Provider Nurse Practitioner Family; Visit Provider Nurse Practitioner Family
DX: I65.22 Occlusion and stenosis of left carotid artery (principal)
CPT/HCPCS: 93880

== ENCOUNTER 2022-08-18 08:39 | Day surgery (SDC) | payer MEDICARE, MEDICAID, SELFPAY ==
[2022-08-18] VITALS (7 sets, daily range): BP systolic 81–116; BP diastolic 62–74; PULSE 61–74; RESP 16–18; TEMP 36.4–36.6; O2SAT 93–98; BMI 32.8
[2022-08-18] MEDS: Lactated Ringers 1,000 ML 15 ML IV (08:50)
--- NOTE | 2022-08-18 10:24 | PCM.HP.BLA ---
History and Physical Date of Admission: 08/18/22 Intake Vital Signs ? 07/28/2313:01 Height 5 ft 8 in Weight: 220 lb BMI 33.4 BP 124/79 H Blood Pressure Location Rt brachial Position Sitting Respiration 16 Intake Visit Reasons:?CSCOPE Chief Complaint: c-scope Etiquette Coach Required: No Is patient in pain?: No Allergies house dust Adverse Reaction (Verified 07/28/22 14:05) cough and cold symptoms Medications fluticasone propionate 50 mcg/actuation nasal spray,suspension 2 spray NASAL DAILY 10/21/15 [History Confirmed 07/28/22] lansoprazole 30 mg capsule,delayed release 30 mg PO DAILY 10/21/15 [History Confirmed 07/28/22] montelukast 10 mg tablet 10 mg PO DAILY 10/21/15 [History Confirmed 07/28/22] clopidogrel 75 mg tablet 75 mg PO DAILY #90 tabs 04/14/18 [Rx Confirmed 07/28/22] carvedilol 3.125 mg tablet 3.125 mg PO BID #180 tabs 12/20/19 [Rx Confirmed 07/28/22] acetaminophen 325 mg capsule 650 mg PO TID PRN Pain 1-10 Or Fever 08/21/20 [History Confirmed 07/28/22] albuterol sulfate 90 mcg/actuation aerosol inhaler (Proventil HFA) 2 puff inhalation Q6H PRN Sob &/Or Wheezing 08/21/20 [History Confirmed 07/28/22] simvastatin 40 mg tablet 40 mg PO QHS 08/21/20 [History Confirmed 07/28/22] lisinopril 20 mg tablet 20 mg PO DAILY 12/06/21 [History Confirmed 07/28/22] tiotropium bromide 2.5 mcg/actuation mist for inhalation (Spiriva Respimat) 2 puff inhalation DAILY 12/06/21 [History Confirmed 07/28/22] aspirin 325 mg tablet 325 mg PO DAILY 12/31/21 [History Confirmed 07/28/22] hydrochlorothiazide 25 mg tablet 25 mg PO DAILY blood pressure #90 tabs 12/31/21 [Rx Confirmed 07/28/22] nitroglycerin 0.4 mg sublingual tablet 0.4 mg sublingual Q5-15M PRN Chest Pain #25 tabs 12/31/21 [Rx Confirmed 07/28/22] PFSH Medical History? 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 Cataract Chest pain Colon cancer Conjunctivitis COPD (chronic obstructive pulmonary disease) CVA (cerebral vascular accident) CVD (cerebrovascular disease) Dehydration Educational circumstance Essential hypertension GERD (gastroesophageal reflux disease) History of colon cancer Hypokalemia Osteoarthritis PAC (premature atrial contraction) Palpitations Presence of stent in coronary artery (~09/23/09) Prostate cancer Pure hypercholesterolemia Regional lymph node metastasis present Right-sided carotid artery disease Sinus bradycardia 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 H/O colectomy History of left common carotid artery stent placement History of squamous cell carcinoma excision Presence of coronary angioplasty implant and graft (~09/23/09) Family History? Father Heart murmurMother Heart disease HypertensionBrother?? Colon cancerBrother Colon cancer Social History? Smoking Status:? Never smoker alcohol intake:? never substance use type:? does not use caffeine:? Yes Type: coffee Number of servings: 5 what type of physical activity do you participate in:? aerobics and other frequency:? daily duration:? 15-30 minutes/day seatbelt use:? always do you feel safe at home:? Yes HPI HPI HPI: Patient is a 77-year-old male here with history of colon cancer for colonoscopy.? Patient denies any blood in the stool or abdominal pain.? Patient had a recent carotid stent over the summer. ROS General General: Yes colon cancer and weakness; No weight change, appetite, fatigue or breast cancer HEENT HEENT: No difficulty swallowing, eye injury, eye surgery, swollen glands or hoarseness Endo Endocrine: No thyroid disease, diabetes mellitus, thyroid cancer, Hair loss, heat intolerance or cold intolerance Skin Skin: No rash or changing moles Breast Breast: No left breast lump, right breast lump, nipple discharge, breast pain, abnormal mammogram, abnormal US or breast enlargement Musc Musculoskeletal: Yes arthritis and joint pain; No back problems, rheumatoid arthritis or gout Cardio Cardiovascular: Yes heart disease and high blood pressure; No murmur, pacemaker, atrial fibrillation, heart attack, heart stent, palpitations, shortness of breat with exertion or chest pain Psych Psychiatric: No depression, anxiety or hearing voices Resp Respiratory: No shortness of breath, No sleep apnea, No cough, No COPD, Yes asthma, No emphysema and No wheezing Gastro Gastrointestinal: No abdominal pain, No nausea or vomiting, No diarrhea, No constipation, No blood in stool, No acid reflux, No hemorrhoids, No ulcers, No gallbladder problem and No black,tarry stools Sean Hematologic: Yes blood thinners, No blood disorders, No bleeding, No anemia and No blood clots Neuro Neurologic: No system reviewed and no additional complaints, except as documented, No as per HPI, No abnormal gait, No abnormal hearing, No abnormal movements, No abnormal speech, No behavioral changes, No burning sensations, No confusion, No convulsions, No disequilibrium, No dizziness, No localized weakness, No frequent falls, No headache(s), No lack of coordination, No loss of vision, No memory loss, No numbness, No other visual disturbances, No radicular pain, No restless legs, No sensory deficit, No syncope, No tingling, No tremor(s), Yes weakness and No other Exam Const General: cooperative Orientation: alert and oriented x3 HENKY Head: normal to inspection Neck Neck: normal visual inspection and full ROM Chest Chest palpation & inspection: normal inspection of the chest Resp Effort & Inspection: normal respiratory effort Auscultation: clear to auscultation bilaterally Cardio Rate: regular rate Rhythm: regular rhythm GI Inspection: non-distended Palpation: soft and nontender Skin General: no rashes or lesions noted Neuro General: patient alert and patient oriented x3 Extrem General: full ROM Psych Appearance: grossly normal Mental Status: mental status grossly normal Assessment and Plan Assessment and Plan (1) History of colon cancer: ?Status:?Acute ?Plan: Patient has history of colon cancer and requires surveillance colonoscopy.? His last colonoscopy was 3 years ago and was normal.? I recommend performing the colonoscopy on his aspirin and Plavix as he has a recent carotid stent and I do not want stop his anticoagulation.? I discussed that he was a little bit of increasing his risk of bleeding but that I would rather reverse the Plavix if needed then to stop it early in risk stroke. I explained endoscopy in detail to the patient.? I explained the risks including but not limited to stroke or heart attack with anesthesia, perforation of the GI tract, bleeding, infection.? I explained that any of these could necessitate further emergency surgery.? The patient understands and all questions were answered sufficiently.? The patient wishes to proceed with procedure. Xander Woo MD Pager: [facility] [place] [address] [place] [address] [address] [place] [address] Office: I have examined the patient and the H&P has been reviewed. There are no clinical changes since date of exam.
--- NOTE | 2022-08-18 10:54 | OP.COLON_ITS ---
Patient Name: Renny Vaca Procedure Date: 08/18/2022 10:30 AM Date of : 1945 Age: 77 Procedure: Colonoscopy Indications: High risk colon cancer surveillance: Personal history of colon cancer Providers: Xander Woo MD Referring MD: Xander Woo MD Medicines: Monitored Anesthesia Care Patient Profile: This is a 77 year old male. Refer to note in patient chart for documentation of history and physical. Last Colonoscopy: 3 years ago. Complications: No immediate complications. Procedure: Pre-Anesthesia Assessment: - Prior to the procedure, a History and Physical was performed, and patient medications and allergies were reviewed. The patient's tolerance of previous anesthesia was also reviewed. The risks and benefits of the procedure and the sedation options and risks were discussed with the patient. All questions were answered, and informed consent was obtained. Prior Anticoagulants: The patient has taken Plavix (clopidogrel), last dose was day of procedure. After reviewing the risks and benefits, the patient was deemed in satisfactory condition to undergo the procedure. After I obtained informed consent, the scope was passed under direct vision. Throughout the procedure, the patient's blood pressure, pulse, and oxygen saturations were monitored continuously. The colonoscope was introduced through the anus and advanced to the cecum, identified by appendiceal orifice and ileocecal valve. The colonoscopy was performed without difficulty. The patient tolerated the procedure well. The quality of the bowel preparation was good. Scope In: 10:41:50 AM Scope Withdrawal Time 0 hours 6 minutes 7 seconds Scope Out: 10:52:03 AM Total Procedure Duration Time 0 hours 10 minutes 13 seconds Findings: The entire examined colon appeared normal on direct and retroflexion views. Impression: - The entire examined colon is normal on direct and retroflexion views. - No specimens collected. Recommendation: - Discharge patient to home. - Resume previous diet. - Continue present medications. - Repeat colonoscopy in 3 years for surveillance. Procedure Code(s): --- Professional --- 31682, Colonoscopy, flexible; diagnostic, including collection of specimen(s) by brushing or washing, when performed (separate procedure) Diagnosis Code(s): --- Professional --- Z85.038, Personal history of other malignant neoplasm of large intestine CPT copyright 2017 [employer]. All rights reserved. The codes documented in this report are preliminary and upon phytopathology teacher review may be revised to meet current compliance requirements. Xander Woo MD 08/18/2022 10:54:28 AM This report has been signed electronically. Number of Addenda: 0 Note Initiated On: 08/18/2022 10:30 AM
--- NOTE | 2022-08-18 10:55 | OP.CCLET_ITS ---
08/18/2022 Meghan Sanchez [address] [place] [address] Re : Colonoscopy procedure for Renny Vaca Dear Dr. Sanchez This procedure was performed on Thursday, August 18, 2022. My impressions and recommendations are as follows: Impressions : - The entire examined colon is normal on direct and retroflexion views. - No specimens collected. Recommendations : - Discharge patient to home. - Resume previous diet. - Continue present medications. - Repeat colonoscopy in 3 years for surveillance. My findings are described in the full procedure note, which is enclosed. If I can be of further assistance, please feel free to contact me at Doctor phone number(s): , Work: . Sincerely, Xander Woo MD 08/18/2022 10:54:28 AM This report has been signed electronically.
== END 2022-08-18 12:01 | disposition home or self-care (01) ==
LOC: EN 08:40 → AC 08:41
PROVIDERS: PCP Internal Medicine; Referring Provider Internal Medicine; Visit Provider Surgery
PROC: 0DJD8ZZ Inspection of Lower Intestinal Tract, Via Natural or Artificial Opening Endoscopic (ICD-10-PCS; CPT 45378; principal; 2022-08-18 09:40)
DX: Z12.11 Encounter for screening for malignant neoplasm of colon (principal); J44.9 Chronic obstructive pulmonary disease, unspecified; I25.10 Atherosclerotic heart disease of native coronary artery without angina pectoris; I10 Essential (primary) hypertension; E78.00 Pure hypercholesterolemia, unspecified; Z86.73 Personal history of transient ischemic attack (TIA), and cerebral infarction without residual deficits; Z95.5 Presence of coronary angioplasty implant and graft; Z79.82 Long term (current) use of aspirin; Z79.899 Other long term (current) drug therapy; Z80.0 Family history of malignant neoplasm of digestive organs; Z85.038 Personal history of other malignant neoplasm of large intestine
CPT/HCPCS: 45378; J7120; J2405

== ENCOUNTER → 2022-09-29 | Outpatient (CLI) | payer MEDICARE, MEDICAID, SELFPAY ==
[2022-09-29 16:44] LABS: PSA,Total- Diagnostic 0.61 ng/mL (0.0-4.0)
== END | disposition home or self-care (01) ==
LOC: LAB 15:48
PROVIDERS: PCP Internal Medicine; Visit Provider Urology
DX: C61 Malignant neoplasm of prostate (principal)
CPT/HCPCS: 36415; 84153

== ENCOUNTER → 2023-08-03 | Outpatient (CLI) | payer MEDICARE, MEDICAID, SELFPAY ==
--- NOTE | 2023-08-03 15:05 | RAD_ITS ---
STUDY: X-RAY CHEST REASON FOR EXAM: Male, 78 years old. SOB TECHNIQUE: PA and lateral views of the chest. COMPARISON: 12/06/2021. FINDINGS: Small left basilar calcified granuloma measuring 4 mm the, stable. Otherwise the lungs are clear and expanded. There is no demonstrated pleural abnormality. Normal size heart. Normal mediastinum and alexandre. Normal visualized pulmonary arteries. There is atherosclerotic calcification of the aortic arch . There are diffuse degenerative changes of the visualized thoracic spine. Normal visualized ribs, clavicles, and shoulders. There is no demonstrated abnormality of the visualized soft tissue structures of the upper abdomen. RAD/Chest PA and Lateral IMPRESSION: No acute cardiopulmonary disease. Electronically Signed: Nan Lay MD at 16:52 EST ,
[2023-08-03 16:31] LABS: Absolute Lymphocyte Count 0.36 X10^3/uL (0.83-4.51); Basophil# 0.04 X10^3/uL; Basophil% 0.5 % (0-1); Eosinophil# 0.08 X10^3/uL; Eosinophils% 1.1 % (0-5); Hematocrit 44.9 % (40-54); Hemoglobin 14.7 g/dL (13.0-16.5); Lymphocyte # 0.36 X10^3/ul (0.83-4.51); Lymphocyte % 4.8 % (19-41); Mean Corp Hgb Conc 32.7 g/dL (32-36); Mean Corpuscular Hgb 30.7 pg (27.0-32.0); Mean Corpuscular Volume 93.7 fL (80-94); Mean Platelet Vol. 9.4 fl (6.2-12.0); Monocyte# 0.94 X10^3/uL; Monocyte% 12.6 % (0-10); NRBC Flagged by Analyzer 0 % (0-5); Neutrophil # 5.98 X10^3/uL (2.7-7.7); Neutrophil % 80.5 % (47-70); POSITIVE DIFFERENTIAL YES; Platelet Count 242 K/mm3 (150-450); RBC Distribution Width SD 44.6 fl (35.1-43.9); Red Blood Count 4.79 M/mm3 (4.6-6.2); White Blood Count 7.4 K/mm3 (4.4-11.0)
[2023-08-03 16:33] LABS: Differential Indicated SCAN CRITERIA MET
[2023-08-03 16:49] LABS: Anisocytosis RARE; Macrocytosis RARE; Platelet Estimate ADEQUATE (ADEQ); Red Cell Morphology N CHROM NORMAL (NORM C&C)
[2023-08-03 16:59] LABS: BNP,B-Type NATRIURETIC PEPTIDE 15.1 pg/mL (0-100)
[2023-08-03 17:04] LABS: Anion Gap 5 (5-15); BUN 21 mg/dL (7-18); BUN/Creat Ratio 20.8 RATIO (10-20); Calcium,Total 9.7 mg/dL (8.5-10.1); Chloride 102 mmol/L (98-107); Creatinine, Serum 1.01 mg/dL (0.70-1.30); EST Glomerular Filtration Rate 76 mL/min (>60); Est Glom Filt Rate - Afr Amer 92 mL/min (>60); Glucose 94 mg/dL (74-106); Potassium 3.6 mmol/L (3.5-5.1); Sodium Level 135 mmol/L (136-145); Troponin-I HS 8 pg/mL (3.0-78.0)
== END | disposition home or self-care (01) ==
LOC: LAB 14:49
PROVIDERS: PCP Internal Medicine; Referring Provider Nurse Practitioner Family; Visit Provider Nurse Practitioner Family
DX: R06.02 Shortness of breath (principal); I10 Essential (primary) hypertension; I49.1 Atrial premature depolarization; E78.00 Pure hypercholesterolemia, unspecified; Z95.5 Presence of coronary angioplasty implant and graft
CPT/HCPCS: 36415; 71046; 80048; 83880; 84484; 85025

== ENCOUNTER → 2023-08-06 | Outpatient (CLI) | payer MEDICARE, MEDICAID, SELFPAY | END | disposition home or self-care (01) | PROVIDERS: PCP Internal Medicine; Referring Provider Internal Medicine; Visit Provider Internal Medicine | DX: R11.0 Nausea (principal) ==

== ENCOUNTER → 2023-10-04 | Outpatient (CLI) | payer MEDICARE, MEDICAID, SELFPAY ==
--- NOTE | 2023-10-04 16:20 | STRESSREP_ITS ---
Stress Test Report Date: 10/04/2023 Procedure: Pharmacologic stress nuclear imaging study Indications: Coronary artery disease Consent: Per the patient Procedure: The patient underwent pharmacologic (Regadenoson 0.4mg ) evaluation with a peak heart rate of 80 beats per minute (55%predicted maximal heart rate) and a peak blood pressure of 124/70 mmHg. The baseline ECG demonstrated sinus rhythm. The peak pharmacologic ECG demonstrated no ischemic changes. Occasional PACs noted postinfusion. There was no complaint of chest discomfort during pharmacologic infusion or recovery. The patient was injected with 14.1 millicuries of technetium 99m Cardiolite and subsequently rest SPECT Cardiolite nuclear imaging was obtained in the horizontal long, vertical long, and short axis views. The patient underwent pharmacologic (Regadenoson) evaluation. The patient was injected with 44.3 millicuries of technetium 99m Cardiolite and subsequently stress SPECT Cardiolite nuclear imaging was obtained in the horizontal long, vertical long, and short axis views. A gated Cardiolite study at peak stress was obtained. The examination was stopped secondary to completion of protocol. Rest and stress SPECT Cardiolite nuclear imaging status post realignment, normalization, and attenuation correction demonstrate no fixed or reversible perfusion defects. There is end systolic thickening and brightening. The gated Cardiolite study demonstrates myocardial thickening and inward wall motion. The reported LVEF is 64%. Impression: 1. Pharmacologic (Regadenoson) evaluation 2. Peak pharmacologic ECG with no ischemic changes. 3. Occasional PACs noted postinfusion. 5. Rest and stress SPECT Cardiolite nuclear imaging demonstrate relative unifor m tracer uptake and myocardial perfusion appearing within normal limits. 6. The gated Cardiolite study reports an LVEF of 64%. This note was generated with [employer] software. It may contain incorrect words, spelling, and punctuation that were not noted in checking the note before signing.
== END | disposition home or self-care (01) ==
LOC: CVS 06:43
PROVIDERS: PCP Internal Medicine; Referring Provider Nurse Practitioner Family; Visit Provider Nurse Practitioner Family
DX: I25.10 Atherosclerotic heart disease of native coronary artery without angina pectoris (principal); I10 Essential (primary) hypertension; R06.02 Shortness of breath; Z95.5 Presence of coronary angioplasty implant and graft
CPT/HCPCS: 78452; 93017; A9500; A4216; J2785

== ENCOUNTER → 2023-12-22 | Outpatient (CLI) | payer MEDICARE, MEDICAID, SELFPAY ==
--- NOTE | 2023-12-22 15:40 | RAD_ITS ---
STUDY: X-RAY - LUMBAR SPINE REASON FOR EXAM: Male, 78 years old. Radiculopathy, lumbar region TECHNIQUE: 4 view(s) of the lumbar spine were obtained. COMPARISON: October 28, 2004 FINDINGS: Normal lumbar lordosis. There is a slightly more prominent scoliosis. There is a normal alignment of the vertebrae. Degenerative changes of the vertebral bodies with increasing spurring at the endplates. Narrowed L4-5 disc space since the previous study. The soft tissue structures are unremarkable. RAD/L/S Spine Min 4 Views IMPRESSION: Worsening degenerative changes of the lumbar spine. Electronically Signed: Bo Grant DO at 16:25 EDT ,
== END | disposition home or self-care (01) ==
LOC: MTRAD 15:39
PROVIDERS: PCP Internal Medicine; Referring Provider Internal Medicine; Visit Provider Internal Medicine
DX: M54.16 Radiculopathy, lumbar region (principal)
CPT/HCPCS: 72110

== ENCOUNTER → 2024-01-10 | Outpatient (CLI) | payer MEDICARE, MEDICAID, SELFPAY ==
--- NOTE | 2024-01-10 12:30 | MRI_ITS ---
HISTORY: Osteoarthritis, low back pain, neuropathy. History of prostate and colon cancer. TECHNIQUE: Multiplanar and multisequence MR images of the lumbar spine were obtained without intravenous contrast. 182 images. COMPARISON: 12/22/2023. FINDINGS: VERTEBRAE: Vertebral body heights maintained. Degenerative endplate changes at multiple levels. No other significant bone marrow signal abnormality. ALIGNMENT: No anterior or posterior subluxation. CONUS: Normal morphology and position of the conus medullaris at T12. Tortuosity and redundancy of the cauda equina nerve root secondary to spinal canal stenosis. INTERVERTEBRAL DISCS: T12-L1: No significant posterior disc protrusion, central canal stenosis, or foraminal narrowing. L1-2: Minimal disc bulge and mild facet arthropathy resulting in mild bilateral foraminal narrowing. No significant central canal stenosis. L2-3: Moderate disc bulge and facet arthropathy superimposed on a developmentally narrow spinal canal resulting in markedly severe central canal stenosis with probable left L3 nerve root impingement and moderate bilateral foraminal narrowing. L3-4: Mild-moderate disc bulge with superimposed right paracentral disc protrusion and facet arthropathy superimposed on a developmentally narrow spinal canal resulting in right L4 nerve root abutment, moderate central canal stenosis, and moderate right and left foraminal narrowing with right L3 nerve root impingement or abutment. L4-5: Moderate disc bulge and facet arthropathy superimposed on a developmentally narrow spinal canal resulting in severe central canal stenosis and bilateral foraminal narrowing with bilateral L4 nerve root impingement. L5-S1: Minimal disc bulge and mild facet arthropathy without significant central canal stenosis. Mild bilateral foraminal narrowing. SOFT TISSUES: Mild posterior subcutaneous edema. MRI/Spine Lumbar (Routine) IMPRESSION: Multilevel degenerative disc disease superimposed on a developmentally narrow spinal canal resulting in severe spinal canal stenosis with nerve root abutment/impingement as above. Electronically Signed: Lilina So MD at 12:11 EDT ,
== END | disposition home or self-care (01) ==
LOC: MRI 11:55
PROVIDERS: PCP Internal Medicine; Referring Provider Orthopaedic Surgery Orthopaedic Surgery of the Spine; Visit Provider Orthopaedic Surgery Orthopaedic Surgery of the Spine
DX: M54.16 Radiculopathy, lumbar region (principal)
CPT/HCPCS: 72148

== ENCOUNTER 2024-01-24 15:30 | Outpatient (RCR) | payer MEDICARE, MEDICAID, SELFPAY ==
--- NOTE | 2023-12-29 16:10 | HP.PTEVAL2 ---
Patient's Visit Information Visit Information Visit Information: WERNER STEIN is a 78 year old M referred to Physical Therapy by Dr. Meghan Sanchez DO with a diagnosis of . Date of Evaluation: Physical Therapist: Chaparro Castellanos PT, Cert MDT, OCS Anticipated Interventions text: Thank you for the opportunity to evaluate your patient. For Medicare and Medicare HMO plans, please review the plan of care and approve it. It will need to be FAXED BACK to us at [phone] for Medicare purposes. For Medicare only, by signing this I certify the plan of care. Please let me know if there are questions or concerns regarding this plan of care. Physician Signature: Date:
--- NOTE | 2023-12-29 17:23 | HP.PTEVAL_ITS ---
Patient's Visit Information Visit Information Visit Information: WERNER STEIN is a 78 year old M referred to Physical Therapy by Dr. Meghan Sanchez DO with a diagnosis of LUMBAR RADICULOPATHY. Date of Evaluation: 12/29/23 Physical Therapist: Chaparro Castellanos, PT, Cert MDT, OCS Visit Plan Frequency: 2x /Week Duration: 4 Weeks Plan: H/O CVA RIGHT SIDE HEMIPLEGIA PT INTERVENTIONS BLE FLEXABILITY ,POSTURAL EX'S DLS ,BLE STRENGTHENING AND MODALITIES PRN Subjective Subjective: This 78 y/o male presents to physical therapy with lumbar radiculopathy right. Patient has had right leg pain for several year. Patient seen DR recommended PT and pain management. X-rays showed DDD lumbar. Dr recommended pain medication.Patient Patient has CVA affects right side 2 years ago. Aggravating walking/standing ,lifting and bending. Alleviating factors sitting. Coughing/sneezing -. Bowel/bladder -. C/O paresthesia/tingling . Patient has no back pain just leg symptoms in right leg occasional symmetrical lumbar pain . Patient sleeping okay at night. Patient uses QC for balance from CVA. Patient ahs no h/o trauma. Patient condition affects QOL/function. Patient has had PT in past. Patient goals to decrease pain. SOCIAL: single VOCATION: retired Pain Right Lower Extremity: Pain Intensity (Out of 10): 3 Pain Intensity Range: 10 Objective Objective: POSTURE: mild forward posture hips/knees flexed NEURO: C/O paresthesia/tingling right leg ,reflexes L3-4,L4-5,L5-S1 1/3 PALPATION: unremarkable FLEXABILITY: hamstrings mod tight LUMBAR ROM: flexion mod loss ,extension severe tight ,side glides mod loss MMT: quads/hams 4/5 ,hip flexion 4-/5 ,hip abd 3+/5 ,ankle 4/5 Special Tests L/S Slump test left side: Negative L/S Slump test right side: Negative L/S Left Straight Leg Raise: Negative L/S Right Straight Leg Raise: Negative Lumbar Standing: Flexion - Mechanical Response: No effect Lumbar Standing: Flexion - Symptoms During Testing: Increases Lumbar Standing: Flexion - Symptoms After Testing: No worse Lumbar Standing: Extension - Mechanical Response: No effect Lumbar Standing: Extension - Symptoms During Testing: Increases Lumbar Standing: Extension - Symptoms After Testing: No worse Lumbar Standing: Right Side Glides - Mechanical Response: No effect Lumbar Standing: Right Side [place] - Symptoms During Testing: No effect Lumbar Standing: Right Side [place] - Symptoms After Testing: No effect Lumbar Standing: Left Side [place] - Mechanical Response: No effect Lumbar Standing: Left Side [place] - Symptoms During Testing: No effect Lumbar Standing: Left Side [place] - Symptoms After Testing: No effect Balance/Special Test Scores Oswestry Low Back Score: 24 Goals Goal 1:: Patient to be I with HEP Goal Time Frame: 4-6 Weeks Goal 2:: Patient to improve lumbar ROM for function of recovery to put on shoes. Goal Time Frame: 4-6 Weeks Goal 3:: Patient to demonstrate 50% improvement with less pain and improved function Goal Time Frame: 4-6 Weeks Goal 4:: Patient improve back oswestry score by 5 points to improve QOL Goal Time Frame: 4-6 Weeks Goal 5:: Patient to be able to walk /stand > 20-30 mins with less pain and improve function. Goal Time Frame: 4-6 Weeks Rehabilitation Potential Physical Therapy Diagnosis: This patient has lumbar radiculopathy with possible stenosis with pain worse with walking/standing and worse with position and motion testing and comorbities of CVA right side weakness Rehabilitation Potential: Good Anticipated Interventions Patient/Client Instruction: Educate patient on: Condition and Plan of Care For the Purpose of:: To decrease pain, To increase ROM, To improve muscle performance and motor function, To increase tolerance to activity/condition/position, To improve ability of physical actions for home/community/work/leisure, To improve health of tissue, To decrease soft tissue restriction, To increase flexibility/ROM and To improve tolerance to ADL's Therapeutic Exercise to Include: Strength training, Flexibilty training and Dynamic Lumbar Stabilization Comment: BLE For the Purpose of:: To decrease pain, To improve muscle performance and motor function, To improve ability to perform ADL's, To increase tolerance to activity/condition/position, To improve ability of physical actions for home/com munity/work/leisure, To improve health of tissue, To decrease soft tissue restriction, To increase flexibility/ROM, To reduce risk of recurrence and To improve tolerance to ADL's TENS: Yes IF ES: Yes Cryotherapy (ice pack, ice massage): Yes Thermo therapy (hot pack): Yes Ultrasound (thermal/non thermal): Yes For the Purpose of:: To decrease pain, To increase ROM, To improve nutrient delivery to tissue, To increase oxygenation perfusion, To improve health of tissue and To decrease soft tissue restriction Text: Thank you for the opportunity to evaluate your patient. For Medicare and Medicare HMO plans, please review the plan of care and approve it. It will need to be FAXED BACK to us at [phone] for Medicare purposes. For Medicare only, by signing this I certify the plan of care. Please let me know if there are questions or concerns regarding this plan of care. Physician Signature: Date:
--- NOTE | 2024-01-24 15:45 | HP.PTDCSUM ---
Discharge Summary D/C summary: It has been my pleasure to treat WERNER STEIN referred by Dr. Meghan Sanchez DO, with the diagnosis of LUMBAR RADICULOPATHY for a total of 8 visit(s). Discharge Date: Please see the following information for a summary of their discharge status. Subjective Subjective: Patient had MRI showed severe stenosis Patient occasionally ambulate walk ~ 20min or< Pain Right Lower Extremity: Pain Intensity (Out of 10): 5 Overall Improvement % Improvement: 20 Objective Objective/Function: POSTURE: mild forward posture NEURO: C/O paresthesia/tingling right leg ,reflexes L3-4,L4-5,L5-S1 1/3 PALPATION: unremarkable FLEXABILITY: hamstrings mod tight LUMBAR ROM: flexion mod loss ,extension severe tight ,side glides mod loss MMT: quads/hams 4/5 ,hip flexion 4-/5 ,hip abd 3+/5 ,ankle 4/5 POSTURE: mild forward posture hips/knees flexed NEURO: C/O paresthesia/tingling right leg ,reflexes L3-4,L4-5,L5-S1 1/3 PALPATION: unremarkable FLEXABILITY: hamstrings mod tight LUMBAR ROM: flexion mod loss ,extension severe tight ,side glides mod loss MMT: quads/hams 4/5 ,hip flexion 4-/5 ,hip abd 3+/5 ,ankle 4/5 POSTURE: mild forward posture hips/knees flexed NEURO: C/O paresthesia/tingling right leg ,reflexes L3-4,L4-5,L5-S1 1/3 PALPATION: unremarkable FLEXABILITY: hamstrings mod tight LUMBAR ROM: flexion mod loss ,extension severe tight ,side glides mod loss MMT: quads/hams 4/5 ,hip flexion 4-/5 ,hip abd 3+/5 ,ankle 4/5 Goals Goal 1:: Patient to be I with HEP Goal Progress: Progressing Goal 2:: Patient to improve lumbar ROM for function of recovery to put on shoes. Goal Progress: Progressing Goal 3:: Patient to demonstrate 50% improvement with less pain and improved function Goal Progress: Progressing Goal 4:: Patient improve back oswestry score by 5 points to improve QOL Goal Progress: Progressing Goal 5:: Patient to be able to walk /stand > 20-30 mins with less pain and improve function. Plan Plan: RTD TO AND REVIEW MRI AND DISCUSS FURTHER OPTIONS D/C Information d/c sentence: If there are questions or concerns regarding this patient's physical therapy, please feel free to call me at [phone]. Thank you for the referral of this patient. Sincerely, Chaparro Castellanos, PT, Cert MDT, OCS Balance/Gait/Functional tests Balance/Special Test Scores Oswestry Low Back Score: 24 Improvement % Improvement: 20
== END 2024-01-24 19:00 | disposition home or self-care (01) ==
LOC: PT 15:30
PROVIDERS: PCP Internal Medicine; Referring Provider Internal Medicine; Visit Provider Internal Medicine
DX: M54.16 Radiculopathy, lumbar region (principal)
CPT/HCPCS: 97110; 97162; 97530

== ENCOUNTER → 2024-09-27 | Outpatient (CLI) | payer MEDICARE, MEDICAID, SELFPAY ==
--- NOTE | 2024-09-27 13:55 | CDU_ITS ---
Reason For Study Reason For Study: HX LT ICA Stent Rt. Velocities/BP Lt. Velocities/BP Prox CCA 105.2/23.0 cm/sec. Prox CCA 133.0/34.2 cm/sec. Mid CCA 88.8/23.0 cm/sec. Mid CCA 110.0/21.6 cm/sec. Dist CCA 110.7/21.2 cm/sec. Dist CCA 89.1/24.1 cm/sec. Prox ICA 120.4/16.9 cm/sec. Stent Noted at Distal CCA / Prox ICA Mid ICA 112.5/17.5 cm/sec. Pre Stent - 89.1/25.3 cm/s Dist ICA 37.6/8.1 cm/sec. Prox Stent - 84.2/19.3 cm/s Rt. ICA/CCA = 1.3. Mid Stent - 74.3/25.9 cm/s Prox ECA 97.7/13.1 cm/sec. Dist Stent - 83.1/27.0 cm/s Rt. Vert. 36.0/9.0 cm/sec. Post Stent - 63.8/24.5 cm/s. Mid ICA 91.9/32.5 cm/sec. Dist ICA 34.3/14.2 cm/sec. Lt. ICA/CCA = 1.2. Prox ECA 159.4/18.9 cm/sec. Lt. Vert. 43.1/16.6 cm/sec. Right Extracranial There is homogeneous, smooth atherosclerotic plaque noted in the right common carotid artery. There is heterogeneous, irregular atherosclerotic plaque noted in the right internal carotid artery. There is heterogeneous, irregular atherosclerotic plaque noted in the right external carotid artery. Antegrade flow is noted in the right vertebral artery. Left Extracranial There is heterogeneous, smooth atherosclerotic plaque noted in the left common carotid artery. There is heterogeneous, irregular atherosclerotic plaque noted in the left internal carotid artery. Stent noted. The left external carotid artery is not well visualized. Antegrade flow is noted in the left vertebral artery. Procedure Carotid Duplex 62420. This is a Carotid Duplex examination using B-mode, color flow and specral Doppler. The exam was diagnostic. Exam performed in department. VL/Carotid Duplex Ultrasound Interpretation Summary Mild (<50%) stenosis right extracranial internal carotid. Mild (<50%) stenosis left extracranial internal carotid. Patent and antegrade vertebrals bilaterally. Ordering Physician: Nabil Soto Referring Physician: Meghan Sanchez M.D. Performed By: Loy Senior RVT
== END | disposition home or self-care (01) ==
LOC: CVS 13:49
PROVIDERS: PCP Internal Medicine; Referring Provider Nurse Practitioner Family; Visit Provider Nurse Practitioner Family
DX: I65.22 Occlusion and stenosis of left carotid artery (principal); Z98.890 Other specified postprocedural states; Z95.828 Presence of other vascular implants and grafts; Z95.5 Presence of coronary angioplasty implant and graft
CPT/HCPCS: 93880

== ENCOUNTER → 2024-12-22 | Outpatient (CLI) | payer MEDICARE, MEDICAID, SELFPAY ==
[2024-12-22 15:26] LABS: Absolute Lymphocyte Count 0.77 X10^3/uL (0.83-4.51); Absolute Neutrophil Count 4.7 X10^3/uL (2.0-7.7); Basophil# 0.06 X10^3/uL; Eosinophil# 0.08 X10^3/uL; Eosinophils% 1.3 % (0-5); Hematocrit 47.3 % (40-54); Hemoglobin 15.2 g/dL (13.0-16.5); Lymphocyte # 0.77 X10^3/ul (0.83-4.51); Lymphocyte % 12.7 % (19-41); Mean Corp Hgb Conc 32.1 g/dL (32-36); Mean Corpuscular Hgb 31.5 pg (27.0-32.0); Mean Corpuscular Volume 98.1 fL (80-94); Mean Platelet Vol. 9.3 fl (6.2-12.0); Monocyte# 0.45 X10^3/uL; Monocyte% 7.4 % (0-10); NRBC Flagged by Analyzer 0 % (0-5); Neutrophil # 4.68 X10^3/uL (2.7-7.7); Neutrophil % 77.3 % (47-70); Platelet Count 220 K/mm3 (150-450); RBC Distribution Width CV 13.2 % (11.6-14.6); RBC Distribution Width SD 47.7 fl (35.1-43.9); Red Blood Count 4.82 M/mm3 (4.6-6.2); White Blood Count 6.1 K/mm3 (4.4-11.0)
[2024-12-22 18:06] LABS: ALB/GLOB Ratio 1.8 RATIO (0.9-2.4); AST(SGOT) 26 U/L (<=37); Alanine Aminotransfer ALT/SGPT 14 U/L (<=46); Albumin, Serum 4.4 g/dL (3.4-4.8); Alkaline Phosphatase 63 U/L (40-129); Anion Gap 13 (5-15); BUN 17 mg/dL (4-19); Calcium,Total 9.7 mg/dL (7.6-11.0); Carbon Dioxide 22.9 mmol/L (21.0-32.0); Chloride 102 mmol/L (98-108); Creatinine, Serum 1.03 mg/dL (0.70-1.20); EST Glomerular Filtration Rate 75 (>60); Globulin 2.4 g/dL (2.2-4.2); Glucose 116 mg/dL (70-99); PSA,Total- Diagnostic 0.16 ng/mL (0.00-4.00); Potassium 3.7 mmol/L (3.3-5.1); Protein, Total 6.8 g/dL (5.9-8.4); Sodium Level 137 mmol/L (133-145); Total Bilirubin 0.56 mg/dL (0.00-1.30)
[2024-12-25 11:08] LABS: Carcinoembryonic Antigen 2.2 ng/mL (0.0-4.7)
== END | disposition home or self-care (01) ==
LOC: LAB 15:14
PROVIDERS: PCP Internal Medicine; Referring Provider Nurse Practitioner Family; Visit Provider Nurse Practitioner Family
DX: C18.4 Malignant neoplasm of transverse colon (principal); C61 Malignant neoplasm of prostate
CPT/HCPCS: 36415; 80053; 82378; 84153; 85025

== ENCOUNTER → 2025-03-01 | Outpatient (CLI) | payer MEDICARE, MEDICAID, SELFPAY ==
--- NOTE | 2025-03-01 07:18 | ECHOD_ITS ---
Reason For Study Reason For Study: CAD/ASHD Procedure This was a 2D Doppler, Color Flow transthoracic echocardiogram. Exam performed in department. Left Ventricle Normal LV size. Left ventricular systolic function is normal. The left ventricular ejection fraction is 60 %. Stage 1 diastolic dysfunction. No regional wall motion abnormalities noted. Right Ventricle Normal RV size. Normal systolic function. Atria Normal left atrium. Normal right atrium. Mitral Valve Normal mitral valve. Tricuspid Valve Normal tricuspid valve. Mild (1+) tricuspid valve insufficiency. Pulmonary artery systolic pressure is 30 mmHg. Aortic Valve Trisinus/trileaflet aortic valve. Peak aortic valve gradient 18 mmHg. Mean aortic valve gradient 9 mmHg. Pulmonic Valve Normal pulmonic valve. Great Vessels Normal aortic root. The pulmonary artery is normal size. Inferior vena cava collapse with respiration. Pericardium/Pleural No pericardial effusion. MMode/2D Measurements & Calculations LVIDd: 4.5 cm IVSd: 1.0 cm LVOT diam: 2.0 cm LVIDs: 3.1 cm LVPWd: 0.96 cm LVOT area: 3.1 cm2 RVDd: 4.8 cm FS: 31.3 % Ao root diam: 3.9 cm LAV(MOD-bp): 55.2 ml LVAd ap4: 25.4 cm2 LAV(MOD-bp) Indexed: 25.9 ml/m2 LVLd ap4: 8.2 cm LAV(MOD-sp2): 64.7 ml EDV(MOD-sp4): 65.7 ml LAV(MOD-sp4): 43.4 ml EDV(sp4-el): 67.1 ml LVAs ap4: 14.4 cm2 LVLs ap4: 6.8 cm ESV(MOD-sp4): 27.8 ml ESV(sp4-el): 26.2 ml EF(MOD-sp4): 57.6 % EF(sp4-el): 60.9 % SV(MOD-sp4): 37.9 ml SV(sp4-el): 40.9 ml Aortic Valve Planimetry: 2.1 cm2 SI(MOD-sp4): 17.8 ml/m2 LA A4 area: 16.6 cm2 LA dimension(2D): 4.3 cm RA A4 area: 16.8 cm2 TAPSE: 2.4 cm Time Measurements MV dec time: 0.30 sec Doppler Measurements & Calculations MV E max wilmer: 55.5 cm/sec Lat Peak E' Wilmer: 11.6 cm/sec Med Peak E' Wilmer: 9.9 cm/sec MV A max wilmer: 78.3 cm/sec E/E' lat: 4.8 E/E' med: 5.6 MV E/A: 0.71 MV V2 max: 107.3 cm/sec MV P1/2t max wilmer: 97.1 cm/sec Ao V2 max: 215.5 cm/sec MV max P.6 mmHg MV P1/2t: 97.4 msec Ao max P.6 mmHg MV V2 mean: 48.9 cm/sec Ao V2 mean: 140.5 cm/sec MV mean P.2 mmHg MV dec slope: 291.9 cm/sec2 Ao mean P.4 mmHg MV V2 VTI: 42.4 cm MVA(P1/2t): 2.3 cm2 Ao V2 VTI: 49.4 cm AV (velocity ratio): 0.68 MVA(VTI): 2.5 cm2 MEGAN(I,D): 2.1 cm2 MEGAN(V,D): 2.0 cm2 LV V1 max: 141.7 cm/sec SV(LVOT): 104.6 ml PA V2 max: 102.1 cm/sec LV V1 max P.0 mmHg LV V1 mean P.1 mmHg LV V1 mean: 94.1 cm/sec LV V1 VTI: 33.8 cm PI dec slope: 116.6 cm/sec2 TR max wilmer: 258.5 cm/sec TR max P.7 mmHg ECHO/Echo Complete Interpretation Summary Normal LV size. Left ventricular systolic function is normal. The left ventricular ejection fraction is 60 %. Stage 1 diastolic dysfunction. Mean aortic valve gradient 9 mmHg. Pulmonary artery systolic pressure is 30 mmHg. Ordering Physician: Jodie Rodrigez Referring Physician: Jodie Rodrigez Performed By: Jamin Barrera RCS
--- NOTE | 2025-03-01 12:50 | STRESSREP ---
Stress Test Report Pharmacologic myocardial perfusion stress test. 79-year-old male with history of chest pain Resting EKG demonstrates Sinus bradycardia with a rate of 50 bpm. Resting blood pressure is 120/68 mmHg. 0.4 mg of regadenoson was infused per usual protocol followed by rapid intravenous saline flush injection. Continuous EKG monitoring was performed. The maximum heart rate was 72 bpm which was 50%of max impacted heart rate the maximum workload was 1 metabolic equivalent. At rest there were no ST or T wave changes noted to suggest ischemia and at peak infusion nonspecific ST changes were noted which did not meet the criteria for ischemia. No clinical angina is noted. The final blood pressure was 122/60 mmHg. Myocardial perfusion protocol. 15 mCi of technetium 99m sestamibi was injected at rest. 0.4 mg of regadenoson was infused per usual protocol. At peak infusion 45 mCi of technetium 99m sestamibi was injected stress images were obtained stress and rest images were reconstructed and compared in the short axis vertical long and horizontal long axis. Gated images were also obtained. Perfusion SPECT analysis: Review of the stress images demonstrate normal uptake of tracer noted in all areas of the myocardium. The resting images similar demonstrated normal uptake of tracer noted in all areas of the myocardium. No areas of reversibility are noted to suggest ischemia and no previous infarct is noted. Gated SPECT analysis: The gated ejection fraction is 73%. Conclusion: Normal pharmacologic myocardial perfusion stress test. Preserved ejection fraction.
== END | disposition home or self-care (01) ==
LOC: CVS 07:15
PROVIDERS: PCP Internal Medicine; Referring Provider Internal Medicine Cardiovascular Disease; Visit Provider Internal Medicine Cardiovascular Disease
DX: I25.10 Atherosclerotic heart disease of native coronary artery without angina pectoris (principal); Z98.890 Other specified postprocedural states; Z95.828 Presence of other vascular implants and grafts; Z95.5 Presence of coronary angioplasty implant and graft
CPT/HCPCS: 78452; 93017; 93306; A9500; A4216; J2785